=== PATIENT | female | born 1965 | race Caucasian/White ===

== ENCOUNTER 2023-08-15 12:42 | Outpatient (CLI) | payer OTHER, SELFPAY ==
--- NOTE | ~2023-08-15 | MR_ITS ---
MRI of the cervical spine Clinical History: Neck pain, radiculopathy Technique: Axial T2-weighted and gradient images, and sagittal T1-weighted, T2-weighted, and STIR beronica ges were acquired. Findings: There is mild reversal normal cervical lordosis, with minimal grade 1 anterolisthesis of C3 over C4, and of C4 over C5. No suspicious bone marrow signal reality seen. At C2-C3, there is no disc bulge or herniation. No spinal canal stenosis, cord compression, or neural foraminal narrowing. At C3-C4, there is minimal disc bulge. There is right neural foraminal narrowing with right-sided fac et arthropathy. Left neural foramen preserved. No canal stenosis or cord compression. At C4-C5, there is disc osteophyte complex with mild canal stenosis and minimal flattening the ventra l cord. There is left neural foraminal narrowing. Right neural foramen preserved. There is left facet arthropathy. At C5-C6, there is moderate to advanced degenerative disc narrowing. No madelyn canal stenosis or cord compression. There is possible minimal bilateral neural foraminal narrowing with minimal facet arthro kristofer. At C6-C7, there is moderate to advanced degenerative disc narrowing. There is no madelyn canal stenosis , cord compression, or definite neural foraminal narrowing. No abnormal signal seen in the spinal cord. Paravertebral soft tissues are unremarkable. Impression: Moderate degenerative spondylosis at C4-C5, as above. Additional mild degenerative changes, as above. Reviewed, dictated and finalized at [facility]. Impression: Moderate degenerative spondylosis at C4-C5, as above. Additional mild degenerative changes, as above.
== END 2023-08-15 12:43 | disposition home or self-care (01) ==
LOC: ANHIMG 12:48
PROVIDERS: PCP Nurse Practitioner; Visit Provider Nurse Practitioner
DX: M47.892 Other spondylosis, cervical region (principal)
CPT/HCPCS: 72141

== ENCOUNTER 2023-09-02 11:25 | Emergency (ER) | payer OTHER, SELFPAY ==
--- NOTE | 2023-09-02 11:31 | ED.GENADULT ---
HPI - General Adult General Chief complaint: Skin/Abscess/Foreign Body Stated complaint: Rash on right arm Time Seen by Provider: 09/02/23 11:31 Source: patient, RN notes reviewed and old records reviewed Mode of arrival: ambulatory Limitations: no limitations History of Present Illness HPI narrative: 58-year-old female to [facility] for complaint a rash to right upper anterior arm for 2 weeks. Patient reports initial insect bites that were itchy. Patient attempted to treat at home with peroxide and antibiotic cream. Patient endorses increasing redness, swelling, warmth to area. Patient denies fevers, radiating pain, nausea, decreased range of motion, allergies, pertinent medical history. Patient in no acute distress. Related Data Home Medications Medication Instructions Recorded Confirmed atorvastatin 20 mg tablet mg 09/02/23 carbamazepine 200 mg mg PO 09/02/23 tablet,extended release,12 hr gabapentin 300 mg capsule mg 09/02/23 insulin glargine 100 unit/mL (3 unit subcut 09/02/23 mL) subcutaneous pen (Lantus Solostar U-100 Insulin) insulin lispro 100 unit/mL subcut 09/02/23 subcutaneous pen (Humalog KwikPen (U-100) Insulin) levothyroxine 75 mcg tablet mcg 09/02/23 metoprolol succinate 50 mg mg PO 09/02/23 tablet,extended release 24 hr montelukast 10 mg tablet mg 09/02/23 omeprazole 40 mg capsule,delayed mg 09/02/23 release venlafaxine 150 mg mg PO 09/02/23 capsule,extended release 24 hr Allergies Allergy/AdvReac Type Severity Reaction Status Date / Time No Known Allergies Allergy Unverified 11/20/16 11:14 Review of Systems Review of Systems: All systems reviewed & are unremarkable except as noted in HPI and below Constitutional: Constitutional: Reports no additional constitutional complaints Eyes: Eyes: Reports no additional eye complaints ENT: Reports system reviewed and no additional complaints, except as documented Cardiovascular: Cardiovascular: Reports no additional cardiovascular complaints, Denies chest pain and Denies dyspnea Respiratory: Respiratory: Reports no additional respiratory complaints, Denies cough and Denies dyspnea Musculoskeletal: Musculoskeletal: Reports no additional musculoskeletal complaints Integumentary/Breasts: Skin/Breast: Reports as per HPI, Reports swelling, Reports pruritus, Reports erythema and Reports rash Neurologic: Reports system reviewed and no additional complaints, except as documented Psychiatric: Psychiatric: Reports no additional psychiatric complaints PMFSH Comments At the time of my signature, I reviewed and agree with the nursing past medical, surgical, social, and family history. There is no relevant family history pertinent to the patient complaint. Exam Const: General: cooperative, healthy appearing, no acute distress, alert, uncomfortable and well nourished Nutritional Appearance: well nourished Orientation/consciousness: patient oriented x3 Limitations: no limitations HENMT: Head: normal to inspection Ears: external ears normal Face/Nose/Sinus: Normal external nose present, Normal nares present, normal facial exam, No erythema and No edema Face and sinus: normal facial exam, no erythema and no edema Mouth: Yes Normal oral and palatal mucosa present Eyes: General: appearance normal, both eyes and all related structures Neck: Neck: normal visual inspection, full ROM and no meningeal signs Lymphatic: no lymphadenopathy noted and no lymphedema noted Chest: Chest palpation & inspection: normal inspection of the chest Resp: Effort & Inspection: normal respiratory effort and able to speak in complete sentences Auscultation: clear to auscultation bilaterally Cardio: Jugular venous distension: no JVD Rate: regular rate Rhythm: regular rhythm Back/Spine/Pelvis: Cervical Spine: cervical ROM normal Skin: General skin exam: erythema, excoriation and rashes Other: Rash to right upper anterior arm. Rajan
[2023-09-02 11:39] VITALS: BP 153/69; PULSE 71; RESP 16; TEMP 36.8; O2SAT 99
== END 2023-09-02 12:05 | disposition home or self-care (01) ==
PROVIDERS: Emergency Provider Nurse Practitioner Family; PCP Nurse Practitioner
DX: L03.113 Cellulitis of right upper limb (principal); S40.861A Insect bite (nonvenomous) of right upper arm, initial encounter; W57.XXXA Bitten or stung by nonvenomous insect and other nonvenomous arthropods, initial encounter
CPT/HCPCS: 99213; G0463

== ENCOUNTER 2025-02-05 15:45 | Emergency (ER) | payer OTHER, SELFPAY ==
--- OUTSIDE RECORDS SUMMARY | 2024-01-24 05:00 | XMS_ITS ---
Author Organization [facility] Address [address] [place] [address] Care Team Providers Care Senior Electrical Designer Name Role Phone Hunter Wilhelm Primary Care Provider [phone] REASON FOR VISIT PCP FU Social History Sex Assigned At : Social History Observation Description Sex Assigned At Female Encounters Encounter Location Date Provider Diagnosis [address] [address] 01/24/2024 Hunter Wilhelm Plan Of Treatment No Information Progress Notes * Rafa MERAZOB: [birth year] (59 yo F)Acc No.[id number]:01/24/2024 UNLOCKED PROGRESS NOTE Progress Notes Patient: Lennie LYNN Provider: Megan Wilhelm, MSN, AGPCNP-BC :1965 A ge:58 Y S ex:Female Date:01/24/2024 Address:[address] [place], [place] [id number] Structured Data:Is there a n edith you would prefer we call you? (Nombre que prefiere usar) : No Subjective: * Chief Complaints: * 1 . PCP FU. * Medical History: Objective: * Vitals: Assessment: Plan: * Treatment: * * Electronic signature of Noah Wilhelm APRN, [id number] on 02/05/2025 at 03:48 PM MACADAM RAKER Sign off status: Pending * Provider: Megan Wilhelm, ELINA, AGPCNP-BC Date: 03/25/2023 Generated for Printing/Faxing/eTransmitting on: 04/07/2024 03:48 PM MACADAM RAKER
--- OUTSIDE RECORDS SUMMARY | 2024-01-29 08:00 | XMS_ITS ---
Author Organization [facility] Address [address] [place] [address] Care Team Providers Care Director Of Residential Services Name Role Phone Hunter Wilhelm Primary Care Provider Lorena Brown [phone] REASON FOR VISIT pap exam Social History Sex Assigned At : Social History Observation Description Sex Assigned At Female Encounters Encounter Location Date Provider Diagnosis [address] [address] 01/29/2024 Lorena Brown Plan Of Treatment No Information Progress Notes * Bridger MOLINAeDOB: [birth year] (59 yo F)Acc No.[id number]:01/29/2024 UNLOCKED PROGRESS NOTE Patient: Lennie LYNN Provider: Yasmany Brown APRN :1965 A ge:58 Y S ex:Female Date:01/29/2024 Address:[address] [place], [place] [address] Pcp:Hunter Wilhelm Structured Data:Is there a n edith you would prefer we call you? (Nombre que prefiere usar) : No Subjective: * Chief Complaints: * 1 . Pap exam. * Medical History: Objective: * Vitals: Assessment: Plan: * Treatment: * * Electronic signature of Maral Brown [id number] on 02/05/2025 at 03:48 PM FERTILIZER SUPERVISOR Sign off status: Pending * Provider: Yasmany Brown APRN Date: 03/30/2023 Generated for Pastora hall/Darryl/Myrna on: 04/07/2024 03:48 PM FERTILIZER SUPERVISOR
--- OUTSIDE RECORDS SUMMARY | 2024-03-13 04:00 | XMS_ITS ---
Author Organization [facility] Address [address] [place] [address] Care Team Providers Care Journeyman Pipe Welder Name Role Phone Hunter Wilhelm Primary Care Provider REASON FOR VISIT Labs Social History Sex Assigned At : Social History Observation Description Sex Assigned At Female Encounters Encounter Location Date Provider Diagnosis [address] [address] 03/13/2024 Hunter Wilhelm Plan Of Treatment No Information Progress Notes * Bridger MERAZeDOB: [birth year] (59 yo F)Acc No.[id number]:03/13/2024 UNLOCKED PROGRESS NOTE Patient: Lennie LYNN Provider: Megan Wilhelm, MSN, AGPCNP-BC :1965 A ge:58 Y S ex:Female Date:03/13/2024 Address:[address] [place], [place] [address] Structured Data:Is there a n edith you would prefer we call you? (Nombre que prefiere usar) : No Subjective: * Chief Complaints: * 1 . Labs. * Medical History: Objective: * Vitals: Assessment: Plan: * Treatment: * * Electronic signature of Noah Wilhelm APRN, [id number] on 02/05/2025 at 03:47 PM RETAIL SERVICE LEAD MERCHANDISER Sign off status: Pending * Provider: Megan Wilhelm, MSN, AGPCNP-BC Date: 05/14/2023 Generated for Printing/Faxing/eTransmitting on: 04/07/2024 03:47 PM RETAIL SERVICE LEAD MERCHANDISER
--- OUTSIDE RECORDS SUMMARY | 2024-03-20 04:20 | XMS_ITS ---
Author Organization [facility] Address [address] [place] [address] Care Team Providers Care Pbx Wire Chief Name Role Phone Hunter Wilhelm Primary Care Provider REASON FOR VISIT Labs Social History Sex Assigned At : Social History Observation Description Sex Assigned At Female Encounters Encounter Location Date Provider Diagnosis [address] [address] 03/20/2024 Hunter Wilhelm Plan Of Treatment No Information Progress Notes * Bridger MERAZeDOB: [birth year] (59 yo F)Acc No.[id number]:03/20/2024 UNLOCKED PROGRESS NOTE Patient: Lennie LYNN Provider: Megan Wilhelm, MSN, AGPCNP-BC :1965 A ge:58 Y S ex:Female Date:03/20/2024 Address:[address] [place], [place] [id number] Structured Data:Is there a n edith you would prefer we call you? (Nombre que prefiere usar) : No Subjective: * Chief Complaints: * 1 . Labs. * Medical History: Objective: * Vitals: Assessment: Plan: * Treatment: * * Electronic signature of Noah Wilhelm APRN, [id number] on 02/05/2025 at 03:48 PM ELECTRODYNAMICIST Sign off status: Pending * Provider: Megan Wilhelm, MSN, AGPCNP-BC Date: 0 03/20/2024 Generated for Printing/Faxing/eTransmitting on: 1 04/07/2024 03:48 PM ELECTRODYNAMICIST
--- OUTSIDE RECORDS SUMMARY | 2024-04-20 04:00 | XMS_ITS ---
Author Organization [facility] Address [address] [place] [address] Care Team Providers Care Art History Instructor Name Role Phone Hunter Wilhelm Primary Care Provider Results Component Value Reference Range Notes Hemoglobin A1c* Reviewed date:05/19/2024 10:35:16 AM Interpretation: Performing Lab:[facility], [address] [facility], Phone - [phone], Director - [facility] Notes/Report: Hemoglobin A1c 10.6 4.8-5.6 % . Prediabetes: 5.7 - 6.4 Diabetes: >6.4 Glycemic control for adults with diabetes: <7.0 CBC With Differential/Platel et* Reviewed date:05/19/2024 10:35:16 AM Interpretation: Performing Lab:[facility], [address] [facility], [place], Phone - [phone], Director - [facility] Notes/Report: WBC 3.9 3.4-10.8 x10E3/uL RBC 4.09 3.77-5.28 x10E6/uL Hemoglobin 13.0 11.1-15.9 g/dL Hematocrit 39.0 34.0-46.6 % MCV 95 79-97 fL MCH 31.8 26.6-33.0 pg MCHC 33.3 31.5-35.7 g/dL RDW 11.9 11.7-15.4 % Platelets 248 150-450 x10E3/uL Neutrophils 44 Not Estab. % Lymphs 40 Not Estab. % Monocytes 7 Not Estab. % Eos 9 Not Estab. % Basos 0 Not Estab. % Neutrophils (Absolute) 1.7 1.4-7.0 x10E3/uL Lymphs (Absolute) 1.5 0.7-3.1 x10E3/uL Monocytes(Absolute) 0.3 0.1-0.9 x10E3/uL Eos (Absolute) 0.4 0.0-0.4 x10E3/uL Baso (Absolute) 0.0 0.0-0.2 x10E3/uL Immature Granulocytes 0 Not Estab. % Immature Grans (Abs) 0.0 0.0-0.1 x10E3/uL Carbamazepine(Tegretol), S Reviewed date:05/19/2024 10:35:16 AM Interpretation: Performing Lab:[facility] [address], Phone - [phone], Director - [facility] Notes/Report: Carbamazepine(Tegretol), S 3.6 4.0-12.0 ug/mL In conjunction with other antiepileptic drugs Therapeutic 4.0 - 8.0 Toxicity 9.0 - 12.0 . Carbamazepine alone Therapeutic 8.0 - 12.0 . Detection Limit = 2.0 <2.0 indicates None Detected Please note The date and/or time of collection was not indicated on the requisition as required by state and federal law. The date of receipt of the specimen was used as the collection date if not supplied. TSH+Free T4* Reviewed date:05/19/2024 10:35:16 AM Interpretation: Performing Lab:[facility] [place], [address] [place] [address], Phone - [phone], Director - [facility] Notes/Report: TSH 2.620 0.450-4.500 uIU/mL T4,Free(Direct) 0.91 0.82-1.77 ng/dL CMP 14 Comprehensive Metabol ic Panel* Reviewed date:05/19/2024 10:35:16 AM Interpretation: Performing Lab:[facility] [address], Phone - [phone], Director - [facility] Notes/Report: Glucose 157 70-99 mg/dL BUN 11 6-24 mg/dL Creatinine 0.66 0.57-1.00 mg/dL eGFR 103 >59 mL/min/1.73 BUN/Creatinine Ratio 17 9-23 Sodium 138 134-144 mmol/L Potassium 5.2 3.5-5.2 mmol/L Chloride 99 96-106 mmol/L Carbon Dioxide, Total 25 20-29 mmol/L Calcium 9.3 8.7-10.2 mg/dL Protein, Total 6.5 6.0-8.5 g/dL Albumin 4.2 3.8-4.9 g/dL Globulin, Total 2.3 1.5-4.5 g/dL Bilirubin, Total <0.2 0.0-1.2 mg/dL Alkaline Phosphatase 121 44-121 IU/L AST (SGOT) 32 0-40 IU/L ALT (SGPT) 29 0-32 IU/L REASON FOR VISIT Fasting labs Medications Medication SIG (Take, Route, Frequency, Duration) Notes Start Date End Date Status metroNIDAZOLE 500 MG 1 tablet Orally Twi ce daily; Duration: 7 days 02/05/2024 Active Calcium 600 MG 1 tablet with meals Orally Once a day Not-Taking Lidocaine 4 % 1 patch as needed Externally Once a day Not-Taking Lantus SoloStar 100 UNIT/ML INJECT 20 UNITS SUBCUTANEOUSLY EVERY NIGHT; Duration: 75 days Active HumaLOG KwikPen 200 UNIT/ML INJECT UP TO 20 UNITS SUBCUTANEOUSLY THREE TIMES A DAY SLIDING SCALE; Duration: 84 Active Metoprolol Succinate ER 50 mg TAKE 1 TABLET BY MOUTH DAILY; Duration: 30 Active Fluticasone Propionate 50 MCG/ACT 1 spray in each nostril Nasally Once a day Active Claritin 10 MG 1 capsule Orally Onc e a day Active ProAir HFA 108 (90 Base) MCG/ACT 1-2 puff as needed Inhalation every 4 hrs; Duration: 30 days 08/06/2019 Active Tresiba FlexTouch 100 UNIT/ML as directed Subcutaneous Act radha Omeprazole 40 mg TAKE 1 CAPSULE BY [facility] DAILY 30 MINUTE(S) BEFORE FOOD; Duration: 30 days Active TRUEplus Pen [place] 31G X 6 MM INJECT FOUR TIMES A DAY WITH INSULIN; Duration: 25 days Active Levothyroxine Sodium 75 MCG 1 tablet in the morning on an empty stomach; Duration: 30 days Active Venlafaxine HCl ER 150 mg TAKE 1 CAPSULE BY MOUTH DAILY WITH FOOD; Duration: 30 days Active Venlafaxine HCl ER 75 mg TAKE 1 CAPSULE BY MOUTH DAILY; Duration: 30 days Active Atorvastatin Calcium 40 mg TAKE 1 TABLET BY MOUTH DAILY; Duration: 30 days Active UltiCare Mini Pen [place] 31G X 6 MM INJECT FOUR TIMES A DAY WITH INSULIN; Duration: 25 Not-Taking carBAMazepine ER 200 mg TAKE 1 TABLET BY MOUTH TWICE A DAY; Duration: 30 days Active Gabapentin 300 mg TAKE 1 CAPSULE BY MO UTH UP TO THREE TIMES A DAY; Duration: 30 days Active Diclofenac Sodium 75 mg TAKE 1 TABLET BY MOUTH TWICE A DAY; Duration: 30 days Active OneTouch Ultra - TEST BLOOD SUGAR THR EE TIMES A DAY; Duration: 33 Not-Taking Metoprolol Tartrate 25 mg TAKE 1 TABLET BY MOUTH TWICE A DAY WITH FOOD; Duration: 30 Not-Taking Influenza Vac Split Quad 0.5 ML as directed Intramuscular once Not-Taking Test strips for glucometer As directed QID 07/29/2020 Not-Taking Influenza Vac Split Quad 0.5 ML as directed Intramuscular once Not-Taking Meclizine HCl 25 MG 1 tablet as needed Orally Once a day; Duration: 30 Not-Taking LORazepam 1 MG as directed Orally O nce a day; Duration: 30 days Not-Shawn ing Euthyrox 75 MCG TAKE 1 TABLET BY [place]KHAIL TH ONCE DAILY IN THE MORNING ON AN EMPTY STOMACH; Duration: 30 Not-Taking Admelog SoloStar 100 UNIT/ML INJECT 10 UNITS BEFORE EVERY MEAL Subcutaneous three times daily; Duration: 50 Not-Taking Social History Sex Assigned At : Social History Observation Description Sex Assigned At Female Encounters Encounter Location Date Provider Diagnosis [address] [address] 04/20/2024 Hunter Wilhelm Seizure disorder G40.909 ; Type 1 diabetes mellitus without complication E10.9 and Hypothyroidism, unspecified type E03.9 Assessments Encounter Date Diagnosis (ICD Code) Assessment Notes Treatment Notes Treatment Clinical Notes Section Notes 04/20/2024 Seizure disorder (ICD-10 - G40.909) 04/20/2024 Type 1 diabetes mellitus without complication (ICD-10 - E10.9) 04/20/2024 Hypothyroidism, unspecified type (ICD-10 - E03.9) Plan Of Treatment No Information Progress Notes * Rafa MERAZOB: [birth year] (59 yo F)Acc No.[id number]:04/20/2024 UNLOCKED PROGRESS NOTE Patient: Lennie LYNN Provider: Megan Wilhelm, MSN, AGPCNP-BC :1965 A ge:58 Y S ex:Female Date:04/20/2024 Address:[address] [place], [place] [id number] Structured Data:Is there a n edith you would prefer we call you? (Nombre que prefiere usar) : No Subjective: * Chief Complaints: * 1 . Fasting labs. * Medical History: * Medications: T aking Claritin 10 MG Capsule 1 capsule Orally Once a day , Taking Fluticasone Propionate 50 MCG/ACT Suspension 1 spray in each nostril Nasally Once a day , Taking Tresiba FlexTouch 100 UNIT/ML Solution Pen-injector as directed Subcutaneous , Taking ProAir HFA 108 (90 Base) MCG/ACT Aerosol Solution 1-2 puff as needed Inhalation every 4 hrs , Taking HumaLOG KwikPen 200 UNIT/ML Solution Pen-injector INJECT UP TO 20 UNITS SUBCUTANEOUSLY THREE TIMES A DAY SLIDING SCALE , Taking Lantus SoloStar 100 UNIT/ML Solution Pen-injector INJECT 20 UNITS SUBCUTANEOUSLY EVERY NIGHT , Taking metroNIDAZOLE 500 MG Tablet 1 tablet Orally Twice daily , Taking Atorvastatin Calcium 40 mg Tablet TAKE 1 TABLET BY MOUTH DAILY , Taking Gabapentin 300 mg Capsule TAKE 1 CAPSULE BY MOUTH UP TO THREE TIMES A DAY , Taking carBAMazepine ER 200 mg Tablet Extended Release 12 Hour TAKE 1 TABLET BY MOUTH TWICE A DAY , Taking Diclofenac Sodium 75 mg Tablet Delayed Release TAKE 1 TABLET BY MOUTH TWICE A DAY , Taking Levothyroxine Sodium 75 MCG Tablet 1 tablet in the morning on an empty stomach , Taking Venlafaxine HCl ER 75 mg Capsule Extended Release 24 Hour TAKE 1 CAPSULE BY MOUTH DAILY , Taking Venlafaxine HCl ER 150 mg Capsule Extended Release 24 Hour TAKE 1 CAPSULE BY MOUTH DAILY WITH FOOD , Taking Omeprazole 40 mg Capsule Delayed Release TAKE 1 CAPSULE BY MOUTH DAILY 30 MINUTE(S) BEFORE FOOD , Taking TRUEplus Pen [place] 31G X 6 MM Miscellaneous INJECT FOUR TIMES A DAY WITH INSULIN , Taking Metoprolol Succinate ER 50 mg Tablet Extended Release 24 Hour TAKE 1 TABLET BY MOUTH DAILY , Not-Taking Lidocaine 4 % Patch 1 patch as needed Externally Once a day , Not- Taking Calcium 600 MG Tablet 1 tablet with meals Orally Once a day , Not-Taking LORazepam 1 MG Tablet as directed Orally Once a day , Not-Taking Meclizine HCl 25 MG Tablet 1 tablet as needed Orally Once a day , Not-Taking Admelog SoloStar 100 UNIT/ML Solution Pen-injector INJECT 10 UNITS BEFORE EVERY MEAL Subcutaneous three times daily , Not-Taking Euthyrox 75 MCG Tablet TAKE 1 TABLET BY MOUTH ONCE DAILY IN THE MORNING ON AN EMPTY STOMACH , Not-Taking Test strips for glucometer As directed QID , Not- Taking Influenza Vac Split Quad 0.5 ML Suspension Prefilled Syringe as directed Intramuscular once , Not-Taking Influenza Vac Split Quad 0.5 ML Suspension Prefilled Syringe as directed Intramuscular once , Not-Taking Metoprolol Tartrate 25 mg Tablet TAKE 1 TABLET BY MOUTH TWICE A DAY WITH FOOD , Not-Taking OneTouch Ultra - Strip TEST BLOOD SUGAR THREE TIMES A DAY , Not-Taking UltiCare Mini Pen [place] 31G X 6 MM Miscellaneous INJECT FOUR TIMES A DAY WITH INSULIN Objective: * Vitals: Assessment: * Assessment: 1. S eizure disorder - G40.909 2 . T ype 1 diabetes mellitus without complication - E10.9 3 . H ypothyroidism, unspecified type - E03.9 Plan: * Treatment: 2. T ype 1 diabetes mellitus without complication L AB: Hemoglobin A1c* (Collection Date & Time - 04/27/2024) L AB: CBC With Differential/Platelet* (Collection Date & Time - 04/27/2024) L AB: CMP 14 Comprehensive Metabolic Panel* (Collection Date & Time - 04/27/2024) 3. H ypothyroidism, unspecified type L AB: TSH+Free T4* (Collection Date & Time - 04/27/2024) * * Electronic signature of Noah Wilhelm , STITCHER [employer], [phone] on 02/05/2025 at 03:47 PM PROFESSIONAL NURSE Sign off status: Pending * Provider: Megan Wilhelm, MSN, AGPCNP-BC Date: 0 04/20/2024 Generated for Printing/Faxing/eTransmitting on: 1 04/07/2024 03:47 PM PROFESSIONAL NURSE
--- OUTSIDE RECORDS SUMMARY | 2024-04-27 03:20 | XMS_ITS ---
Author Organization [facility] Address [address] [place] [address] Care Team Providers Care Turning Sander Tender Name Role Phone Hunter Wilhelm Primary Care Provider [phone] REASON FOR VISIT Labs-fasting Social History Sex Assigned At : Social History Observation Description Sex Assigned At Female Encounters Encounter Location Date Provider Diagnosis [address] [place] [address] 04/27/2024 Hunter Wilhelm Plan Of Treatment No Information Progress Notes * Rafa MERAZOB: [birth year] (59 yo F)Acc No.[id number]:04/27/2024 UNLOCKED PROGRESS NOTE Patient: Lennie LYNN Provider: Megan Wilhelm, MSN, AGPCNP-BC :1965 A ge:58 Y S ex:Female Date:04/27/2024 Address:[address] [place], [place] [address] Structured Data:Is there a n edith you would prefer we call you? (Nombre que prefiere usar) : No Subjective: * Chief Complaints: * 1 . Labs-fasting. * Medical History: Objective: * Vitals: Assessment: Plan: * Treatment: * * Electronic signature of Noah Wilhelm APRN, [id number] on 02/05/2025 at 03:47 PM MANAGER POOL Sign off status: Pending * Provider: Megan Wilhelm, ELINA, AGPCNP-BC Date: 0 04/27/2024 Generated for Printing/Faxing/eTransmitting on: 1 04/07/2024 03:47 PM MANAGER POOL
--- OUTSIDE RECORDS SUMMARY | 2024-05-04 02:20 | XMS_ITS ---
Author Organization [facility] Address [address] [place] [address] Care Team Providers Care Turret Punch Operator Name Role Phone Hunter Wilhelm Primary Care Provider REASON FOR VISIT Labs-fasting Social History Sex Assigned At : Social History Observation Description Sex Assigned At Female Encounters Encounter Location Date Provider Diagnosis [address] [place] [address] 05/04/2024 Hunter Wilhelm Plan Of Treatment No Information Progress Notes * Rafa MERAZOB: [birth year] (59 yo F)Acc No.[id number]:05/04/2024 UNLOCKED PROGRESS NOTE Patient: Lennie LYNN Provider: Megan Wilhelm, MSN, AGPCNP-BC :1965 A ge:58 Y S ex:Female Date:05/04/2024 Address:[address] [place], [place] [address] Structured Data:Is there a n edith you would prefer we call you? (Nombre que prefiere usar) : No Subjective: * Chief Complaints: * 1 . Labs-fasting. * Medical History: Objective: * Vitals: Assessment: Plan: * Treatment: * * Electronic signature of Noah Wilhelm APRN, [id number] on 02/05/2025 at 03:47 PM SUPERVISOR THROWING DEPARTMENT Sign off status: Pending * Provider: Megan Wilhelm, ELINA, AGPCNP-BC Date: 0 05/04/2024 Generated for Printing/Faxing/eTransmitting on: 1 04/07/2024 03:47 PM SUPERVISOR THROWING DEPARTMENT
--- OUTSIDE RECORDS SUMMARY | 2025-02-05 15:47 | XMS_ITS | Encounter Summary ---
Author Organization [facility] Healthcare Address [address] [place] [address] Care Team Providers Care Lead Pastor Name Role Phone Hunter Wilhelm NP Primary Care Provider [phone]- [phone] Hugh Delgado MD Primary Care Provi rishi Encounter Details Date Type Department Care Team (Late st Contact Info) Description 09/29/2019 Telephone [facility] [address] [place] [address] Nina Irizarry, RT Social History Tobacco Use Types Packs/Day Years Used Date Smoking Tobacco: Never Assessed Alcohol Use Standard Drinks/Week Comments Yes 0 (1 standard drink = 0.6 oz pur e alcohol) Comments Unknown Sex and Gender Information Value Date Recorded Sex Assigned at Not on file Legal Sex Female 11:01 AM LAP LAYER Gender Identity Female 01/29/2023 8:49 AM LAP LAYER Sexual Orientation Straight 01/29/2023 8: 49 AM LAP LAYER documented as of this encounter Plan of Treatment Not on file documented as of this encounter Visit Diagnoses Not on filedocumented in this encounter Care Teams Lead Pastor Relationship Specialty Start Date End Date Hunter Wilhelm NP PCP - General 05/17/19 07/22/24 Hugh Delgado MD [address] [facility] [address] [place] [address] PCP - General Family Practice 07/23/24 documented as of this encounter
--- OUTSIDE RECORDS SUMMARY | 2025-02-05 15:48 | XMS_ITS | Clinical Summary ---
Author Organization [facility] Address [address], [address] [address] Phone Care Team Providers Care Claims Processor Name Role Phone Hugh Delgado MD Primary Care Provi rishi Allergies No known active allergies Medications metoprolol tartrate (LOPRESSOR) 25 MG Tablet Take 25 mg by mouth 2 times daily. 1/2 tablet BID 5 6 Active LANTUS 100 UNIT/ML Solution 21 Units by Subcutaneous route nightly. 4 6 Active Calcium Carbonate-Vit D-Min (GNP CALCIUM 1200) 8952-3716 MG-UNIT Chewable Tablet Take 1 Tab by mouth every morning. Active carBAMazepine (TEGRETOL) 200 MG Tablet Take 200 mg by mouth 2 times daily. Active levothyroxine (SYNTHROID) 75 MCG Tablet Take 75 mcg by mouth every morning. Active ascorbic acid (ASCORBIC ACID) 500 MG Tablet Take 500 mg by mouth every morning. Active ONE TOUCH ULTRA TEST Strip 0 6 Active B-D ULTRAFINE III SHORT PEN 31G X 8 MM Misc 0 6 Active Insulin Syringe-Needle U-100 (INSULIN SYRINGE .3CC/29GX1/2) 29G X 1/2 0.3 ML Misc 5 6 Active Insulin Syringe-Needle U-100 (INSULIN SYRINGE .3CC/31GX516) 31G X 516 0.3 ML Misc 0 6 Active Magnesium Oxide 400 MG Capsule Take 400 mg by mouth once. Active ACYCLOVIR PO Take 1 g by mouth daily. Active LORazepam (ATIVAN) 1 MG Tablet Take 1 mg by mouth nightly as needed. Active Venlafaxine HCl XR (EFFEXOR-XR) 150 MG TABLET SR 24 HR Take 1 Tab by mouth. Active omeprazole (PRILOSEC) 20 MG CAPSULE DELAYED RELEASE Take 1 Cap by mouth every morning (before breakfast). 90 Cap 9 Active diclofenac (VOLTAREN) 75 MG Tablet Delayed Response TK 1 T PO BID 0 Active Magnesium 250 MG Tablet Take 250 mg by mouth. Active Insulin Lispro (ADMELOG SC) by Subcutaneous route. PER SLIDING SCALE Active Biotin (biotin forte) 3 MG Tablet Take 3 mg by mouth daily. Active ondansetron (Zofran) 4 MG Tablet Take 1 Tab by mouth every 8 hours as needed for Nausea - 1st line. 15 Tab 0 Active albuterol 108 (90 Base) MCG/ACT Aerosol Solution take 2 Puffs by inhalation every 6 hours as needed for Wheezing. 8 g 4 Active HYDROcodone-nick taminophen (NORCO) 5-325 MG TabletIndicatio ns:Closed fracture of distal ends of right radius and ulna, initial encounter Take 1 Tablet by mouth every 6 hours as needed for Moderate or more severe pain. 20 Tablet 4 Active dicyclomine (BENTYL) 20 MG Tablet Take 1 Tablet by mouth every 6 hours. 30 Tablet 4 Active ondansetron (ZOFRAN) 4 MG Tablet Take 1-2 Tablets by mouth every 8 hours as needed for Nausea - 1st line. 20 Tablet 4 Active naproxen (NAPROSYN) 500 MG Tablet Take 1 Tablet by mouth 2 times daily as needed for Moderate or more severe pain. 20 Tablet 5 Active cyclobenzaprine (FLEXERIL) 10 MG Tablet Take 1 Tablet by mouth 3 times daily as needed (pain) for up to 14 days. 30 Tablet 5 02/15/20 25 Active Active Problems Problem Noted Date Diagnosed Date Closed Colles' fracture of left radius 4 DANIA (stress urinary incontinence, female) 2019 Encounters Date Type Department Care Team Description 01/31/2025 10:25 PM GASOLINE TRACTOR OPERATOR - 01/31/2025 11:22 PM GASOLINE TRACTOR OPERATOR Emergency [facility] Emergency [address] [place] [address] Wilber Stover DO Finger laceration Discharge Disposition: Discharged to home or Selfcare 01/31/2025 Travel from Last 3 Months Immunizations Immunization Administration Dates Next Due Influenza Vaccine greater than 3 yrs 01/06/2015 Family History Medical History Relation Name Comments Cancer Father pancreatic High Cholesterol Father Hypertension Father Breast Cancer Maternal Aunt Cancer Maternal Aunt breast Breast Cancer Maternal Grandmother Cancer Maternal Grandmother breast Cancer Mother melanoma High Cholesterol Mother Hypertension Mother Parkinsonism Mother Rheumatoid Arthritis Mother Thyroid Disease Mother Relation Name Status Comments Father Maternal Aunt Maternal Grandmother Mother Social History Tobacco Use Types Packs/Day Years Used Date Smoking Tobacco: Every Day Cigarettes 0.5 20 Smokeless Tobacco: Never Tobacco Cessation:Ready to Q uit: Not Asked; Counseling Given: Not Answered Comments:patient has cut back her cigarette usage, some days doesnt smoke Alcohol Use Standard Drinks/Week Comments Yes 6 (1 standard drink = 0.6 oz pur e alcohol) occassional PHQ-2 Answer Date Recorded PHQ-2 Score 0 11/29/2018 Sexually Active Control Partners Comments Yes Male Comments No Sex and Gender Information Value Date Recorded Sex Assigned at Not on file Legal Sex Female 2:50 PM GASOLINE TRACTOR OPERATOR Gender Identity Not on file Sexual Orientation Not on file Occupation Industry Job Start Date Job End Date unemployed Not on file Not on file Not on file Last Filed Vital Signs Vital Sign Reading Time Taken Comments Blood Pressure 136/64 01/31/2025 10:29 PM GASOLINE TRACTOR OPERATOR Pulse 76 01/31/2025 10:29 PM GASOLINE TRACTOR OPERATOR Temperature 36.3 C (97.4 F) 01/31/2025 10:29 PM GASOLINE TRACTOR OPERATOR Respiratory Rate 14 01/31/2025 10:2 9 PM GASOLINE TRACTOR OPERATOR Oxygen Saturation 99% 01/31/2025 10: 29 PM GASOLINE TRACTOR OPERATOR Inhaled Oxygen Concentration - - Weight 56.1 kg (123 lb 10.9 oz) 025 10:29 PM GASOLINE TRACTOR OPERATOR Height 160 cm (5' 3) 01/31/2025 10:29 PM GASOLINE TRACTOR OPERATOR Body Mass Index 21.91 01/31/2025 10:29 PM GASOLINE TRACTOR OPERATOR Plan of Treatment Health Maintenance Due Date Last Done Comments Varicella Immunization (1 of 2 - 13+ 2-dose series) 09/04/1980 Pneumococcal Immunization (50+ years) (1 of 2 - PCV) 09/04/1986 Pap Smear 09/04/1988 Cervical Cancer Screening (CCS) 09/04/1997 HPV/Cotest 09/04/1997 Cologuard 09/04/2012 Immunochemical Fecal Occult Blood 09/04/2012 Hepatitis B Immunization (3 of 3 - 19+ 3-dose series) 06/19/2022 04/24/2022, 10/17/2021 Influenza Immunization (#1) 11/16/202402/15, 01/02/2022, 03/08/2021, Additional history exists SARS-COV-2 Immunization (2024- season) 2024 02/28/2023, 01/09/2022, 03/15/2021, Additional history exists Mammogram 07/28/2025 07/28/2024, 12/16, 01/02/2022, Additional history exists Colonoscopy 12/03/2034 12/03/2024, 11/16, 03/25/2018 Colorectal Cancer Screening 12/03/2034 Respiratory Syncytial Virus (RSV) Immunization (Adult) (1 - 1-dose 75+ series) 09/04/2042 DTaP/Tdap/Td Immunization Discontinued 08/11/2021 TdaP Immunization Completed 08/11/2021 Hepatitis C Virus (HCV) Screening Completed 10/30/2021 Zoster Immunization Completed 08/24/2022, Human Papillomavirus (HPV) Immunization Aged Out No longer eligible based on patient's age to complete this topic Meningococcal Immunization (ACWY) Aged Out No longer eligible based on patient's age to complete this topic Rotavirus Immunization Aged Out No lo nger eligible based on patient's age to complete this topic Medical Devices Implanted Type Area Polytechnic Registrar Device Identifier Shelf Expiration Date Model / Serial / Lot System Urth Support Blue 22cm .15mm Obtryx Ii Precisionblue Advantage Thk.66mm 1182um Midurethral - [id number] Implanted:Qty: 1 on 01/22/2020 by Jp Hernandez MD at [facility] IMPLANT N/A: Bladder [employer] 02/14/2022 [id number] Plain K-Wire- Wire Fix 9in 0.062 In Toy Cheryle [employer]ain[employer] Stel 2 Tip Smth Implanted:Qty: 4 on 07/03/2023 by Anthony Royal MD at [facility] Left: Wrist [id number] / [id number] / [id number] Description:4 K-WIRES WITH 4 JURGAN BALLS Procedures Procedure Name Priority Date/Time Associated Diagnosis Comments LACERATION REPAIR Routine 01/31/2025 10: 49 PM GASOLINE TRACTOR OPERATOR [facility] DIAG BILATERAL DIGITAL W CAD W BRENDA Routine 05/15/2018 2:05 PM GASOLINE TRACTOR OPERATOR Other signs and symptoms in breast from Last 3 Months or Most Recently Relevant to Health Maintenance Results * Laceration Repair (01/31/2025 10:49 PM GASOLINE TRACTOR OPERATOR) Narrative Wilber Stover DO - 01/31/2025 10:49 PM GASOLINE TRACTOR OPERATOR Wilber Stover DO 01/31/2025 11:15 PM Laceration Repair Performed by: Wilber Stover DO Authorized by: Wilber Stover DO Consent: Consent obtained: Emergent situation Consent given by: Patient Risks, benefits, and alternatives were discussed: yes Risks discussed: Infection, pain, need for additional repair, poor cosmetic result, nerve damage, poor wound healing, vascular damage, tendon damage and retained foreign body Alternatives discussed: No treatment, referral, observation and delayed treatment Page protocol: Procedure explained and questions answered to patient or proxy's satisfaction: yes Relevant documents present and verified: yes Test results available: yes Imaging studies available: yes Required blood products, implants, devices, and special equipment available: yes Immediately prior to procedure, a time out was called: yes Patient identity confirmed: Verbally with patient and arm band Anesthesia: Anesthesia method: Nerve block Block location: Finger block Block needle gauge: 27 G Block anesthetic: Lidocaine 1% w/o epi Block injection procedure: Anatomic landmarks identified, anatomic landmarks palpated, introduced needle, negative aspiration for blood and incremental injection Block outcome: Anesthesia achieved Laceration details: Location: Finger Finger location: L index finger Length (cm): 1 Pre-procedure details: Preparation: Patient was prepped and draped in usual sterile fashion Treatment: Amount of cleaning: Standard Irrigation solution: Sterile saline Irrigation method: Pressure wash Debridement: None Undermining: None Skin repair: Repair method: Sutures Suture size: 4-0 Suture material: Nylon Suture technique: Simple interrupted Number of sutures: 2 Approximation: Approximation: Close Repair type: Repair type: Simple Post-procedure details: Procedure completion: Tolerated well, no immediate complications us Wilber Zhou Ck DO PROCEDURE/MINOR SURGICA L ORDERABLES Final Result * [facility] DIAG BILATERAL DIGITAL W CAD W BRENDA (05/15/2018 2:05 PM GASOLINE TRACTOR OPERATOR) Anatomical Region Laterality Modality breast Bilateral Mammography 05/15/2018 1:26 PM GASOLINE TRACTOR OPERATOR Narrative 05/15/2018 2:19 PM GASOLINE TRACTOR OPERATOR - [facility] DIAG BILATERAL DIGITAL W CAD W BRENDA BILATERAL DIGITAL DIAGNOSTIC MAMMOGRAM 3D/2D WITH CAD WITH MEDIOLATERAL OBLIQUE CRANIOCAUDAL: 05/15/2018 The study was acquired using digital technology and interpreted from soft copy. Current study was also evaluated with ICAD version 7.2. CLINICAL: Patient complains of two episodes of pain on the entire lateral side of her right breast that has since improved. She also notes a very painful area and lump in the left axilla that has now gone away. She has no complaints today. No personal history of cancer. Mother and maternal aunt with postmenopausal breast cancer. COMPARISONS: Comparison is made to exams dated: 07/16/2016 [facility], 06/23/2015, and 01/23/2014 [facility]. BREAST TISSUE:The tissue of both breasts is extremely dense, which lowers the sensitivity of mammography. FINDINGS: No significant masses, calcifications, or other findings are seen in either breast. There has been no significant interval change. Since the patient no longer has areas of pain or palpable lumps, no ultrasound was performed today. IMPRESSION: BI-RAD 1 NEGATIVE There is no mammographic evidence of malignancy. A 1 year screening mammogram is recommended. The patient has been or will be contacted. Electronically signed by: Daniel Garcia M.D. ll/:05/15/2018 13:57:18 Wooden Boat Builder: Geraldine ROCHA (R)), [facility] letter sent: Normal Exam Reading location: [facility] BI-RADS: 1 Negative Procedure Note Daniel Garcia MD - 05/15/2018 - [facility] DIAG BILATERAL DIGITAL W CAD W BRENDA BILATERAL DIGITAL DIAGNOSTIC MAMMOGRAM 3D/2D WITH CAD WITH MEDIOLATERAL OBLIQUE CRANIOCAUDAL: 05/15/2018 The study was acquired using digital technology and interpreted from soft copy. Current study was also evaluated with ICAD version 7.2. CLINICAL: Patient complains of two episodes of pain on the entire lateral side of her right breast that has since improved. She also notes a very painful area and lump in the left axilla that has now gone away. She has no complaints today. No personal history of cancer. Mother and maternal aunt with postmenopausal breast cancer. COMPARISONS: Comparison is made to exams dated: 07/16/2016 [facility], 06/23/2015, and 01/23/2014 [facility]. BREAST TISSUE:The tissue of both breasts is extremely dense, which lowers the sensitivity of mammography. FINDINGS: No significant masses, calcifications, or other findings are seen in either breast. There has been no significant interval change. Since the patient no longer has areas of pain or palpable lumps, no ultrasound was performed today. IMPRESSION: BI-RAD 1 NEGATIVE There is no mammographic evidence of malignancy. A 1 year screening mammogram is recommended. The patient has been or will be contacted. Electronically signed by: Daniel Garcia M.D. ll/:05/15/2018 13:57:18 Wooden Boat Builder: Geraldine ROCHA (R)), [facility] letter sent: Normal Exam Reading location: [facility] BI-RADS: 1 Negative us Bre Mathews MAKING LINE WORKER, HEEL BOOM OPERATOR IMG MAMMO ORDERABLES Fin al Result from Last 3 Months or Most Recently Relevant to Health Maintenance Insurance [facility] Care Teams Claims Processor Relationship Specialty Start Date End Date Hugh Delgado MD [address] [facility], [address] [place] [address] PCP - General Family Medicine 01/31/25
--- OUTSIDE RECORDS SUMMARY | 2025-02-05 15:48 | XMS_ITS ---
Author Organization [facility] Address [address] [facility], [address] [address] Phone Care Team Providers Care Bee Raiser Name Role Phone Hugh Delgado MD Primary [facility] Episode Status:Identified (Enrolling) Start date:12/18/2024 Related program episode:[facility] (Closed) Continued Care and Services Coordination
--- OUTSIDE RECORDS SUMMARY | 2025-02-05 15:48 | XMS_ITS | Clinical Summary ---
Author Organization [facility] [employer] Address [address] [place] [address] Care Team Providers Care Supervisor Inspection Name Role Phone Darci King MD Primary Care Provider [phone] Source Comments [facility] [employer],non-owned Affiliates and Associated Physician Practices is amultiple site organization consisting of ambulatory clinics and hospital sitesin [place], [place], [place] and [place]. This disclosure is being madepursuant to the Care Everywhere program and may not contain all information available regarding this patient. Last updated 17.[facility] [employer] Allergies No known active allergies Medications * Be aware that medications may not be up to date on this document. Alwaysverify current medications with the patient. insulin glargine (LANTUS) injection Inject subcutaneously at bedtime. Check dose and frequency Active ranitidine (ZANTAC) 150 MG capsule Take 150 mg by mouth 2 times daily. Check dose and frequency Active aspirin (ASPIRIN) 81 MG tablet Take 81 mg by mouth once daily Active Calcium Carb-Cholecalc iferol (CALCIUM + D3 PO) Active carBAMazepine (TEGRETOL) 200 MG tablet Take 200 mg by mouth 3 times daily with meals Active diclofenac sodium EC (VOLTAREN) 75 MG tablet Take 75 mg by mouth 2 times daily Active levothyroxine (SYNTHROID) 75 MCG tablet Take 75 mcg by mouth daily before breakfast Active LORazepam (ATIVAN) 1 MG tablet Take 1 mg by mouth every 8 hours as needed for Anxiety Active magnesium 250 MG tablet Take 250 mg by mouth once daily Active METOPROLOL TARTRATE POIndications: 1/2 tablet am / 2 tablet pm Take 25 mg by mouth Reasons: 1/2 tablet am / 1/2 tablet pm Active omeprazole (PRILOSEC) 20 MG capsule Take 20 mg by mouth daily before breakfast Active valACYclovir (VALTREX) 1 GM tablet Take 1,000 mg by mouth every 12 hours Active Venlafaxine HCl (VENLAFAXINE ER 24HR) 150 MG tablet Take 150 mg by mouth daily with breakfast Active Insulin Lispro (ADMELOG SC) Active cyclobenzaprin e (FLEXERIL) 10 MG tablet Take 1 tablet by mouth nightly as needed for Muscle Spasms 30 tablet 1 9 Active amoxicillin-cl avulanate (AUGMENTIN) 875-125 MG tablet Take 1 tablet by mouth 2 times daily with morning and evening meal 28 tablet 0 Active Active Problems Problem Noted Date Diagnosed Date Cellulitis of hand 10/17/2019 Social History Tobacco Use Types Packs/Day Years Used Date Smoking Tobacco: Former Cigarettes 0 Q uit: 08/16/2018 Smokeless Tobacco: Never Tobacco Cessation:Counseling Given: Yes Comments Unknown Sex and Gender Information Value Date Recorded Sex Assigned at Female 07/25/2022 1:57 PM CDT Legal Sex Female 6:13 AM ELECTRIC OPERATOR Gender Identity Female 07/25/2022 1:57 PM CDT Sexual Orientation Straight 07/25/2022 1: 57 PM CDT Last Filed Vital Signs Vital Sign Reading Time Taken Comments Blood Pressure 127/75 10/19/2019 11:38 AM CDT Pulse 74 10/19/2019 11:38 AM CDT Temperature 36.2 C (97.1 F) 10/19/2019 11:38 AM CDT Respiratory Rate 18 10/19/2019 11:38 AM CDT Oxygen Saturation 95% 10/19/2019 7:42 AM CDT Inhaled Oxygen Concentration - - Weight 63.5 kg (140 lb) 10/17/2019 5:57 AM CDT Height 160 cm (5' 3) 10/17/2019 5:57 AM CDT Body Mass Index 24.8 10/17/2019 5:57 AM CDT Plan of Treatment Health Maintenance Due Date Last Done Comments COLOGUARD (AGES 45-75) - COL ON CA SCREENING 1967 COLON MONITORING 1967 COLONOSCOPY - COLON CA SCREENING 1967 CT COLONOGRAPHY - COLON CA SCREENING 1967 Colorectal Cancer Screening 1967 FIT - COLON CA SCREENING 1967 FLEX SIG - COLON CA SCREENING 1967 LIPID TESTING 1967 HIV SCREENING 09/04/1982 HEPATITIS C SCREENING 08/31/1985 DTAP/TDAP/TD VACCINES (1 - Tdap) 09/04/1986 HEPATITIS B VACCINE (1 of 3 - 19+ 3-dose series) 09/04/1986 PAP SMEAR 09/04/1988 Cervical Cancer Screening 09/04/1997 PAP with HPV 09/04/1997 PNEUMOCOCCAL VACCINE 50+ (1 of 1 - PCV) 09/04/2017 ZOSTER VACCINE (1 of 2) 09/04/2017 MAMMOGRAM 09/29/2021 09/30/2019 DEPRESSION SCREENING 03/18/2024 COVID-19 VACCINE (1 - 2024-2 6 season) 2024 INFLUENZA VACCINE (#1) 2024 8, 01/11/2015, 01/06/2015 HIB VACCINE Aged Out No longer eligi ble based on patient's age to complete this topic HPV VACCINE Aged Out No longer eligi ble based on patient's age to complete this topic MENINGOCOCCAL (Group B) VACCINE SHARED DECISION-MAKING Aged Out No longer eligible based on patient's age to complete this topic MENINGOCOCCAL GROUPS A/C/Y/W VACCINE Aged Out No longer eligible b ased on patient's age to complete this topic Insurance MEDICAID [facility] Advance Directives * Full Code (Latest Code Status on File) Date Activated Date Inactivated Comments 10/17/2019 5:31 AM 10/19/2019 4:18 PM Care Teams Supervisor Inspection Relationship Specialty Start Date End Date Darci King MD [address] [place] [id number] PCP - General 10/20/19
--- OUTSIDE RECORDS SUMMARY | 2025-02-05 15:48 | XMS_ITS | Clinical Summary ---
Author Organization [facility] Medical Office Building [address] Address [address] [place] [address] Care Team Providers Care Battery Builder Name Role Phone Hugh Delgado MD Primary Care Provi rishi Allergies No known active allergies Medications calcium carbonate-elizabeth min D3 (CALCIUM 500 + D) 500 mg(1,250mg) -400 unit chewable tablet 0 0 06/16/19 16 Active omeprazole (PriLOSEC) 20 mg capsule 2 capsules (40 mg total) daily 05/05/19 19 Active magnesium M-tkanlu-uzzxx namide 42 mg (500 mg)- 250 mg tablet extended release Take 250 mg by mouth daily Active acetaminophen (TYLENOL) 325 mg tablet Take 1 tablet (325 mg total) by mouth every 4 (four) hours as needed 05/26/19 16 Active cyanocobalamin (Vitamin B-12) 1,000 mcg tabletIndicati ons:Prevention of Vitamin B12 Deficiency Take 1 tablet (1,000 mcg total) by mouth daily Active blood-glucose meter,continuo us (Dexcom G7 Shelter Director) misc 1 Device continuously To continuously monitor blood sugar e10.65 1 each 1 07/01/19 25 Active gabapentin (NEURONTIN) 300 mg capsule Take 1 capsule (300 mg total) by mouth 3 (three) times a day E10.65 270 capsule 4 07/01/19 25 Active levothyroxine (SYNTHROID) 75 mcg tablet Take 1 tablet (75 mcg total) by mouth daily before breakfast 90 tablet 4 07/01/19 25 Active atorvastatin (LIPITOR) 40 mg tablet Take 1 tablet by mouth once daily 90 tablet 3 07/17/19 25 Active venlafaxine 150 mg tablet extended release 24hr 24 hr tablet Take 2 tablets (300 mg total) by mouth daily with breakfast 180 tablet 1 08/12/19 25 Active metoprolol XL (TOPROL-XL) 50 mg extended release tablet Take 1 tablet (50 mg total) by mouth daily 90 tablet 1 08/12/19 25 025 Active carBAMazepine XR (TEGretol XR) 200 mg 12 hr tablet Take 1 tablet (200 mg total) by mouth 2 (two) times a day 180 tablet 1 08/12/19 025 Active mv,Ca,min-FA-h erbal no.157 400 mcg tablet Take by mouth A ctive montelukast (SINGULAIR) 10 mg tablet Take 1 tablet (10 mg total) by mouth nightly 90 tablet 11/05/19 25 Active pen needle, diabetic (BD Ultra-Fine Short Pen Needle) 31 gauge x 5/16 needle Inject 1 Device under the skin 4 (four) times a day before meals and nightly E10.65 400 each 3 11/26/19 25 Active insulin degludec (TRESIBA) 100 unit/mL (3 mL) pen for injectionIndic ations:type 1 diabetes mellitus Inject 0.19 mL (19 Units total) under the skin daily (Note dose adjustment since switching to tresiba). E10.65 30 mL 4 11/26/19 25 Active blood-glucose sensor (Dexcom G7 Sensor) device Inject 1 Device under the skin continuously . Change every 10 days. E10.65 3 each 3 11/26/19 25 Active hydrocortisone (ANUSOL-HC) 25 mg suppository Insert 1 suppository (25 mg total) into the rectum 2 (two) times a day 28 suppository 12/05/19 25 Active blood-glucose meter kit Use daily or as directed for monitoring of diabetes 1 kit 12/05/19 25 Active blood glucose diagnostic (glucose blood) strip Use to check blood sugar four times 400 each 3 12/05/19 25 Active hydrocortisone (ANUSOL-HC) 2.5 % rectal cream For hemorrhoid management, squeeze small amount into rectum using internal applicator and also apply small amount externally to rectum up to twice daily as needed. 28 g 5 01/13/20 25 Active insulin lispro (HumaLOG, ADMELOG) 100 unit/mL vial for injection Inject 10 Units under the skin 3 (three) times a day before meals . Correction if need +2 units. Total daily 36 units. E10.65 15 mL 3 01/29/[address] (VOLTAREN) 75 mg EC tablet Take 1 tablet (75 mg total) by mouth 2 (two) times a day as needed for pain 60 tablet 2 02/02/20 25 026 Active cyclobenzaprin e (FLEXERIL) 10 mg tablet Take 1 tablet (10 mg total) by mouth 3 (three) times a day as needed 03/04/20 23 025 Discontinu ed(Therapy completed) insulin lispro (HumaLOG, ADMELOG) 100 unit/mL vial for injection Inject 10 Units under the skin 3 (three) times a day before meals . Correction if need +2 units. Total daily 36 units. E10.65 15 mL 3 07/01/19 25 025 Discontinu ed(Reorder ) predniSONE (DELTASONE) 20 mg tabletIndicati ons:Left sided sciatica Take 2 tabs x2 days, then 1 tab x3 days. 7 tablet 07/18/19 25 025 Discontinu ed(Therapy completed) venlafaxine 75 mg tablet extended release 24hr 24 hr tablet Take 1 tablet (75 mg total) by mouth daily 90 tablet 1 07/29/[address] (VOLTAREN) 75 mg EC tablet Take 1 tablet (75 mg total) by mouth 2 (two) times a day 60 tablet 2 10/27/19 25 025 Discontinu ed(Reorder ) Active Problems Problem Noted Date Diagnosed Date Screening for colon cancer 10/22/2024 Dexcom continuous glucose monitoring device 09/16 Assessment & Plan (10/06/2024 2:32 PM CDT): Continuous glucose monitor (cgm) applied from 09/23/2024 to 10/06/2024 This device was placed for monitor and treatment of blood sugar. Interpretation of data- average glucose 248. 20% time in range. 1% hypoglycemia. 79% hyperglycemia Hypertension associated with type 1 diabetes lizabeth litus 07/23/2024 Assessment & Plan (07/23/2024 2:32 PM CDT): Palpitations 07/23/2024 Assessment & Plan (07/23/2024 2:32 PM CDT): Chronic neck pain 07/23/2024 Assessment & Plan (07/23/2024 2:32 PM CDT): Orders: Ambulatory referral to Neurosurgery; Future Cervical radiculopathy 07/23/2024 Assessment & Plan (07/23/2024 2:32 PM CDT): Orders: Ambulatory referral to Neurosurgery; Future Acquired hypothyroidism 06/30/2024 Assessment & Plan (07/23/2024 3:13 PM CDT): Hypothyroidism is well-controlled on levothyroxine 75 mcg per day as evidenced by the recent TSH. Continue to follow up with endocrinology. Encounter for screening colonoscopy 08/08/2023 Type 1 diabetes mellitus with hyperglycemia 01/16 Assessment & Plan (07/23/2024 2:32 PM CDT): Assessment & Plan (03/05/2023 11:37 AM CONTAINER SHOP WELDER): This is a chronic condition which is inadequately controlled, not at goal of less than 7%. Personally reviewed most recent A1c - Latest Reference Range & Units 12/18/22 00:00 SCRIBED Hemoglobin A1c 4.8 - 5.6 % 10.1 ! (E) !: Data is abnormal (E): External lab result Personally reviewed POC blood sugar- not at goal 80-180 Lab Results Component Value Date POCGLU 324 03/05/2023 Medication- increase Lantus 19 units daily, and humalog 10 units 3 times a day prior to meals with 2 units correction if needed. Monitor blood sugar continuously with dexcom 7 sensor. Encouraged annual eye exam. Monofilament foot exam completed. protective senses intact Treated with Gabapentin Personally reviewed CMP eGFR- 109 Kidney function- normal Urine microalbumin/creatinine ratio - at goal <30 not treated with RACHEL/ARB, treated with metoprolol B/P today- at goal of <140/90. continue metoprolol Personally reviewed lipid panel. Not at Goal of less than 70. Continue atorvastatin Assessment & Plan (01/25/2023 1:40 PM CONTAINER SHOP WELDER): This is a chronic condition which is out of control , not at goal of less than 7%. Personally reviewed most recent A1c - Latest Reference Range & Units 12/18/22 00:00 SCRIBED Hemoglobin A1c 4.8 - 5.6 % 10.1 ! (E) !: Data is abnormal (E): External lab result Personally reviewed POC blood sugar- not at goal 80-180 Lab Results Component Value Date POCGLU 167 01/25/2023 Medication- Continue Lantus 18 units daily, and humalog 10 units 3 times a day prior to meals with 2 units correction if needed. Declined visit to paraeducator or dietitian. Monitor blood sugar continuously with Dexcom 7 sensor order Encouraged annual eye exam. last dilated eye exam was [facility] in [facility] - will try to obtain Monofilament foot exam completed. protective senses intact Personally reviewed CMP eGFR- 106 Kidney function- normal Urine microalbumin/creatinine ratio - need - goal <30 not treated with RACHEL/ARB B/P today- not at goal of <140/90. Personally reviewed lipid panel. Not at Goal of less than 70. 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 Continue present management. Assessment & Plan (03/05/2023 11:37 AM CONTAINER SHOP WELDER): This is a chronic condition which is not at goal of LDL less than 70 Continue atorvastatin Encouraged to eat healthy, include fresh fruits and vegetables daily and avoid eating fried foods more than once per week. Encouraged to take medications as prescribed. Assessment & Plan (01/25/2023 1:40 PM CONTAINER SHOP WELDER): This is a chronic condition which is not at goal of LDL less than 70 Continue atorvastatin Encouraged to eat healthy, include fresh fruits and vegetables daily and avoid eating fried foods more than once per week. Encouraged to take medications as prescribed. Sciatica of right side 05/01/2019 Family history of colonic polyps 11/07/2017 Overview (11/07/2017): Added automatically from request for surgery [id number] Complex partial seizures with consciousness impa ired 08/03/2015 Overview (06/22/2016): Complex partial seizures with consciousness impaired Assessment & Plan (07/23/2024 2:32 PM CDT): Hypersomnia 08/03/2015 Overview (06/22/2016): Hypersomnia Narcolepsy without cataplexy(347.00) 06/16/2015 Overview (06/21/2016): Narcolepsy without cataplexy Encounters Date Type Department Care Team Description 02/01/2025 Orders Only [facility] Primary Care at [address] [address] Hugh Delgado MD 01/12/2025 Orders Only [facility] Gastroenterology at [address] [place] [address] Ja Mcgraw DO 01/12/2025 Telephone [facility] Gastroenterology at [address] [place] [address] Luis E Cortes MA 01/06/2025 Telephone [facility] [address] [place] [address] [address] [place] [address] Alexsander Ralph MD 01/05/2025 Telephone [facility] [address] [place] [address] [address] [place] [address] Aggie Thompson MA 12/08/2024 1:36 PM CDT - 12/08/2024 11:59 PM CDT Hospital Encounter [facility] [address] [place] [address] Discharge Disposition: Discharge to home or self care 12/08/2024 1:00 PM CDT Office Visit [facility] 4th Floor [address] [place] [address] Neck pain (Primary Dx) 12/07/2024 Telephone [facility] Gastroenterology at [address] [place] [address] Nu Meraz MA 12/04/2024 Telephone [facility] Diabetes Endocrine Care at [address] [place] [address] Cathy Bojorquez NP 12/04/2024 Telephone [facility] Gastroenterology at [address] [place] [address] Daria Johnson MA 12/04/2024 Telephone [facility] Gastroenterology at [address] [place] [address] Luis E Cortes MA 12/04/2024 Orders Only [facility] Gastroenterology at [address] [place] [address] Dipika Graham MD 12/03/2024 7:44 AM CDT Anesthesia Event [address] [address] Hugh Marr MD 12/03/2024 7:25 AM CDT - 12/03/2024 7:55 AM CDT Surgery [address] [address] Dipika Graham MD COLONOSCOPY 12/03/2024 7:07 AM CDT - 12/03/2024 8:52 AM CDT Hospital Encounter [address] [address] Dipika Graham MD Discharge Disposition: Discharge to home or self care 12/02/2024 8:00 AM CDT - 12/02/2024 8:30 AM CDT Surgery [address] [address] Dipika Graham MD COLONOSCOPY 12/02/2024 7:47 AM CDT Anesthesia Event [address] [address] Hugh Marr MD Standefer, Zachary Daniel SKEIN TIER 12/02/2024 7:09 AM CDT - 12/02/2024 9:00 AM CDT Hospital Encounter [address] [address] Dipika Graham MD Discharge Disposition: Discharge to home or self care 12/02/2024 Telephone [facility] [address] [place] [address] Health 4th Floor [address] [place] [address] Talia Mcgovern RN 12/02/2024 Telephone [facility] Gastroenterology at [address] [place] [address] Kary Sandoval LPN 11/27/2024 Telephone [facility] Gastroenterology at [address] [place] [address] Luis E Cortes MA from Last 3 Months Immunizations Immunization Administration Dates Next Due Flucelvax Influenza Quad 01/14/2017 Hep B Vaccine 04/24/2022,10/17/2021 Influenza, Quadrivalent, Spl it, Intramuscular 02/21/2019 Influenza, Quadrivalent, Spl it, Preservative Free, Intramuscular 01/02/2022,03/08/2021,02/21/2019,01/28,01/11/2015 Influenza, Split 01/01/2014 Influenza, Trivalent, IM (MDV) 01/06/2015,2012 Influenza, Trivalent, Preser vative Free, Intramuscular 02/21/2016,01/10/2015 Moderna Sars-cov-2 Bivalent Vaccine 50 Mcg/0.5 mL (12+ YRS)-Blue/Sánchez 01/09/2022 Pneumococcal, Unspecified 08/11/2021 Tdap 08/11/2021 ZOSTER Recombinant 08/24/2022,05/21/2022 Surgical History Surgery Date Site/Laterality Comments CARPAL TUNNEL RELEASE Carpal tunnel release Medical History Medical History Date Comments Diabetes mellitus Diabetes Hx Other Medical ; Comm ents: KNA 06/16/2015 - Seizure disorder (HCC) Seizure d isorder Smoking Family History Medical History Relation Name Comments Hypertension Father Hypertension; Pancreatic cancer Father Cancer, pa ncreas; Breast cancer Maternal Grandmother Hypertension Mother Hypertension; Melanoma Mother Melanoma; Parkinsonism Mother Parkinson's dis ease; Breast cancer Mother's Sister Relation Name Status Comments Father Maternal Grandmother Mother Mother's Sister Social History Tobacco Use Types Packs/Day Years Used Date Smoking Tobacco: Some Days Cigarettes Tobacco Cessation:Ready to Q uit: Not Asked; Counseling Given: Yes Alcohol Use Standard Drinks/Week Comments Yes 0 (1 standard drink = 0.6 oz pur e alcohol) PHQ-2 Answer Date Recorded PHQ-2 Total Score (If total score is 3 or more points, staff should administer the PHQ-9) 0 07/23/2024 Hunger Vital Sign Answer Date Recorded Within the past 12 months, y ou worried that your food would run out before you got the money to buy more. Never true 12/09/19 25 Within the past 12 months, t he food you bought just didn't last and you didn't have money to get more. Never true 12/08/2024 Personal Safety Answer Date Recorded Have you ever been in or are you currently in a harmful physical or emotional relationship or is someone making you feel afraid or unsafe? Denies 12/03/2024 Comments No Sex and Gender Information Value Date Recorded Sex Assigned at Not on file Legal Sex Female 11:01 AM CONTAINER SHOP WELDER Gender Identity Female 01/29/2023 8:49 AM CONTAINER SHOP WELDER Sexual Orientation Straight 01/29/2023 8: 49 AM CONTAINER SHOP WELDER Obstetrics History Para Term AB IAB SAB Ectopic Multiple Livin g Live Births 5 2 2 Date Outcome GA Total Labor Labor/2nd/3rd Weight Sex Type Anes PTL Nicolette A1 A5 Name Clin Term Term Last Filed Vital Signs Vital Sign Reading Time Taken Comments Blood Pressure 147/77 12/08/2024 12:49 PM CDT Pulse 72 12/08/2024 12:49 PM CDT Temperature 36.7 C (98.1 F) 12/08/2024 12:49 PM CDT Respiratory Rate 18 12/08/2024 12:49 PM CDT Oxygen Saturation 100% 12/03/2024 8:40 AM CDT Inhaled Oxygen Concentration - - Weight 55.5 kg (122 lb 6.4 oz) 12/08/2024 12:49 PM CDT Height 160 cm (5' 3) 12/08/2024 12:49 PM CDT Body Mass Index 21.68 12/08/2024 12:49 PM CDT Plan of Treatment Health Maintenance Due Date Last Done Comments Cervical Cancer Screening 1965 Hepatitis C Screening 1965 Regular Well Visit/Exam 18-64 09/04/1985 Pneumococcal vaccine <65 (1 of 2 - PCV) 09/04/1986 08/11/2021 Covid-19 Vaccine (2 - 2024-2 6 season) 2024 01/09/2022 Influenza Vaccine (#1) 2024 , 03/08/2021, 02/21/2019, Additional history exists Hemoglobin A1C 04/08/2025 10/06/2024, 06/16, 12/18/2022, Additional history exists Albumin Creatinine Ratio, Urine 06/30/2025 , 01/25/2023 Lipid Panel 06/30/2025 06/30/2024, 12/18/2022 TSH Level 06/30/2025 06/30/2024, 01/16, 06/08/2022, Additional history exists eGFR 06/30/2025 06/30/2024, 05/2022, 12/18/2022, Additional history exists Depression Screening 07/23/2025 07/23/2024 Breast Cancer Screening-Mammogram 07/28/2025 07/28/2024, 01/02/2022, 01/02/2022, Additional history exists Dilated Eye Exam 10/06/2025 10/06/2024 Foot Exam 10/06/2025 10/06/2024, 04/1 07/2024, 03/05/2023, Additional history exists Colon Cancer Screening-Colonoscopy 12/03/2029 12/03/2024, 12/02/2024, 03/14/2010 DTaP/Tdap/Td Vaccine (2 - Td or Tdap) 08/12/2031 08/11/2021 Hepatitis B Screening Completed 04/24/2022, 022 Zoster Vaccine Completed 08/24/2022, 05/21/2022 Colon Cancer Screening-CT Colonography Discontinued 12/03/2024, 12/02/2024, 03/14/2010 Colon Cancer Screening-DNA Stool Discontinued 12/03/2024, 12/02/2024, 03/14/2010 Colon Cancer Screening-FIT Discontinued 12/03, 12/02/2024, 03/14/2010 Colon Cancer Screening-Sigmoidoscopy Discontinued 12/03/2024, 12/02/2024, 03/14/2010 Procedures Procedure Name Priority Date/Time Associated Diagnosis Comments NEURO MR OUTSIDE REFERENCE Routine 12/08/2024 1:36 PM CDT COLONOSCOPY 12/03/2024 7:37 AM CDT Family history of colonic polyps Screening for colon cancer POCT GLUCOSE DEVICE Routine 12/03/2024 7:33 AM CDT COLONOSCOPY 12/03/2024 7:15 AM CDT COLONOSCOPY 12/02/2024 7:33 AM CDT Screening for colon cancer Family history of colonic polyps POCT GLUCOSE DEVICE Routine 12/02/2024 7:31 AM CDT COLONOSCOPY 12/02/2024 7:14 AM CDT POCT HEMOGLOBIN A1C Routine 10/06/2024 2:31 PM CDT Type 1 diabetes mellitus with hyperglycemia (HCC) RETINAVUE SCANNER - OU - BOTH EYES Routine 10/06/2024 Type 1 diabetes mellitus with hyperglycemia (HCC) SCREENING MAMMOGRAM BILATERAL W DALJIT Schedule Routine, Read Routine (OP Routine) 07/28/2024 2:19 PM CDT Screening mammogram for breast cancer EGFR Routine 06/30/2024 2:38 PM CDT Type 1 diabetes mellitus with hyperglycemia (HCC) LIPID PANEL Routine 06/30/2024 2:38 PM CDT Type 1 diabetes mellitus with hyperglycemia (HCC) ALBUMIN CREATININE RATIO, URINE Routine 06/30/2024 2:38 PM CDT Type 1 diabetes mellitus with hyperglycemia (HCC) THYROID FUNCTION CASCADE Routine 06/30/2024 2:38 PM CDT Type 1 diabetes mellitus with hyperglycemia (HCC) from Last 3 Months or Most Recently Relevant to Health Maintenance Results * Neuro MR Outside Reference (12/08/2024 1:36 PM CDT) Impressions RAD[facility]PACS[facility] - 12/08/2024 1:36 PM CDT These images are for Reference purposes only and have not been reviewed by [facility]. There will be no report generated by a [facility] Radiologist. Narrative [facility] - 12/08/2024 1:36 PM CDT EXAMINATION: Images For Reference Purposes Only us Marlon Omer MD IMG MRI PROCEDURES F inal Result Performing Organization Address City/[facility]/ZIP Co de Phone Number [email or web address]_[email or web address] * POCT glucose (12/03/2024 7:33 AM CDT) Glucose, POC 158 70 - 199 mg/dL Blood 12/03/2024 7:33 AM CDT 12/03/2024 7:33 AM CDT Dipika Graham MD LAB POCT ORDERABLES - DEVICE Fin al Result YESSENIA [address] Department [place] [address] * Colonoscopy (12/03/2024 7:15 AM CDT) Anatomical Region Laterality Modality Other Narrative Procedure Note Dipika Graham MD - 12/03/2024 7:15 AM CDT [facility] Patient Name: Lennie Meraz Procedure Date: 12/03/2024 7:15 AM Date of : 1965 Admit Type: Outpatient Age: 59 Gender: Female Attending MD: Dipika Graham M.D., Room: [facility] ENDOSCOPY ROOM 2 Note Status: Finalized Patient Profile: This is a 59 year old female hx of HTN, HLD,tobacco use, DM, chronic pain here for colonoscopy forcolon cancer screening. Patient has chronic history of alternating constipation and diarrhea. Colonoscopy yesterday showed poor prep with tortuous colon.Last colonoscopy 2018 showed normal TI and colon bx. Extensive family hx of both parents with polyps and mother with bowel obstruction. Procedure: Colonoscopy Indications: Colon cancer screening in patient at increasedrisk: Family history of colon polyps in [id number] relatives, Last colonoscopy 5 years ago Referring MD: Hugh Delgado M.D. Providers: Dipika Graham M.D. Impression: - Perianal skin tags found on perianal exam. - Colonic spasm. - External and internal hemorrhoids. - No specimens collected. Recommendation: - Patient has a contact number available for emergencies. The signs and symptoms of potential delayed complications were discussed with thepatient. Return to normal activities tomorrow. Written discharge instructions were provided to thepatient. - Discharge patient to home (with escort). - High fiber diet. - Use original regular Metamucil one tablespoon PO daily. - Repeat colonoscopy in 5 years with 2 day prep for screening purposes. - Return to referring provider as previouslyscheduled. Medicines: Monitored Anesthesia Care Complications: No immediate complications. Estimated Blood Loss: Estimated blood loss: none. Procedure: Pre-Anesthesia Assessment: - Prior to the procedure, a History and Physicalwas performed, and patient medications and allergieswere reviewed. The patient is competent. The risks and benefits of the procedure and the sedation optionsand risks were discussed with the patient. Allquestions were answered and informed consent was obtained. Patient identification and proposed procedure were verified by the physician, the market development manager and the final operations technician in the endoscopy suite. Mental Status Examination: normal. Prophylactic Antibiotics: The patient does not require prophylactic antibiotics. Prior Anticoagulants: The patient has taken no anticoagulant or antiplatelet agents. Afterreviewing the risks and benefits, the patient was deemed in satisfactory condition to undergo the procedure.The anesthesia plan was to use monitored anesthesiacare (MAC). Immediately prior to administration of medications, the patient was re-assessed foradequacy to receive sedatives. The heart rate, respiratory rate, oxygen saturations, blood pressure, adequacyof pulmonary ventilation, and response to care were monitored throughout the procedure. The physical status of the patient was re-assessed after the procedure. The benefits, risks and alternatives of theprocedure and sedation were discussed and informed consentwas obtained. All questions were answered. Please referto the signed informed consent document in the medical record. The bowel preparation used was Miralax via extended prep with split dose instruction. Thebowel preparation used was bisacodyl tablets via extended prep with split dose instruction. The scope waspassed under direct vision. The Pediatric Colonoscope [id number]-[id number] was introduced through the anus and advanced to the the cecum, identified by appendiceal orifice and ileocecal valve. The colonoscopy was performed without difficulty. The patient tolerated the procedure well. The qualityof the bowel preparation was adequate. Bowel prep was administered using a split dose. Findings: Skin tags were found on perianal exam. There was spasm in the sigmoid colon and in the descending colon. External and internal hemorrhoids were found during retroflexion. Dipika Graham M.D. 12/03/2024 8:16:34 AM Number of Addenda: 0 Note Initiated On: 12/03/2024 7:15 AM Procedure Code(s): --- Professional --- G0105, Colorectal cancer screening; colonoscopy on individual at high risk --- Technical --- G0105, Colorectal cancer screening; colonoscopy on individual at high risk Diagnosis Code(s): --- Professional --- Z83.719, Family history of colon polyps, unspecified K58.9, Irritable bowel syndrome, unspecified K64.4, Residual hemorrhoidal skin tags K64.8, Other hemorrhoids --- Technical --- Z83.719, Family history of colon polyps, unspecified K58.9, Irritable bowel syndrome, unspecified K64.4, Residual hemorrhoidal skin tags K64.8, Other hemorrhoids CPT copyright 2022 [place] Medical Association. All rights reserved. The codes documented in this report are preliminary and upon jewelry casting model maker apprentice reviewmay be revised to meet current compliance requirements. Recognized by the [place] [employer] for promoting quality in endoscopy Dipika Graham MD ENDOSCOPY PROCEDURES Final Resul t * POCT glucose (12/02/2024 7:31 AM CDT) Glucose, POC 143 70 - 199 mg/dL Blood 12/02/2024 7:31 AM CDT 12/02/2024 7:31 AM CDT Dipika Graham MD LAB POCT ORDERABLES - DEVICE Fin al Result [facility] [place] 1 [facility] [place] [address] * Colonoscopy (12/02/2024 7:14 AM CDT) Anatomical Region Laterality Modality Other Narrative Procedure Note Dipika Graham MD - 12/02/2024 7:14 AM CDT [facility] Patient Name: Lennie Meraz Procedure Date: 12/02/2024 7:14 AM Date of : 1965 Admit Type: Outpatient Age: 59 Gender: Female Attending MD: Dipika Graham M.D., Room: [facility] ENDOSCOPY ROOM 2 Note Status: Finalized Patient Profile: This is a 59 year old female hx of HTN, HLD,tobacco use, DM, chronic pain here for colonoscopy forcolon cancer screening. Patient has chronic history of alternating constipation and diarrhea. Last colonoscopy 2018 showed normal TI and colon bx. Extensive family hx of both parents with polyps and mother with bowel obstruction. Procedure: Colonoscopy Indications: Colon cancer screening in patient at increasedrisk: Family history of colon polyps in [id number]-[place] relatives, Last colonoscopy 5 years ago Referring MD: Hugh Delgado M.D. Providers: Dipika Graham M.D. Impression: - Preparation of the colon was inadequate. - Perianal skin tags found on perianal exam. - Stool in the entire examined colon. - External and internal hemorrhoids. - Tortuous colon. - No specimens collected. Recommendation: - Patient has a contact number available for emergencies. The signs and symptoms of potential delayed complications were discussed with thepatient. Return to normal activities tomorrow. Written discharge instructions were provided to thepatient. - Discharge patient to home (with escort). - Resume previous diet. - Continue present medications. - Repeat colonoscopy either tomorrow if patient agreeable after another 2L of Miralax prep today or within 3 months because the bowel preparation waspoor. - Return to referring provider as previouslyscheduled. Medicines: Monitored Anesthesia Care Complications: No immediate complications. Estimated Blood Loss: Estimated blood loss: none. Procedure: Pre-Anesthesia Assessment: - Prior to the procedure, a History and Physicalwas performed, and patient medications and allergieswere reviewed. The patient is competent. The risks and benefits of the procedure and the sedation optionsand risks were discussed with the patient. Allquestions were answered and informed consent was obtained. Patient identification and proposed procedure were verified by the physician, the market development manager and the final operations technician in the endoscopy suite. Mental Status Examination: normal. Prophylactic Antibiotics: The patient does not require prophylactic antibiotics. Prior Anticoagulants: The patient has taken no anticoagulant or antiplatelet agents. Afterreviewing the risks and benefits, the patient was deemed in satisfactory condition to undergo the procedure.The anesthesia plan was to use monitored anesthesiacare (MAC). Immediately prior to administration of medications, the patient was re-assessed foradequacy to receive sedatives. The heart rate, respiratory rate, oxygen saturations, blood pressure, adequacyof pulmonary ventilation, and response to care were monitored throughout the procedure. The physical status of the patient was re-assessed after the procedure. The benefits, risks and alternatives of theprocedure and sedation were discussed and informed consentwas obtained. All questions were answered. Please referto the signed informed consent document in the medical record. The bowel preparation used was Miralax via split dose instruction. The bowel preparation usedwas bisacodyl tablets via split dose instruction. The scope was passed under direct vision. The Pediatric Colonoscope [id number] was introduced through the anus and advanced to the the cecum, identified by appendiceal orifice and ileocecalvalve. The patient tolerated the procedure well. Thequality of the bowel preparation was inadequate. The colonoscopy was performed with difficulty due to inadequate bowel prep and a tortuous colon.Successful completion of the procedure was aided by usingmanual pressure. Bowel prep was administered using a split dose. Findings: Skin tags were found on perianal exam. A large amount of stool was found in the entire colon, interferingwith visualization. External and internal hemorrhoids were found during retroflexion. The colon (entire examined portion) was tortuous. Advancing the scope required applying abdominal pressure. Dipika Graham M.D. 12/02/2024 8:20:31 AM Number of Addenda: 0 Note Initiated On: 12/02/2024 7:14 AM Procedure Code(s): --- Professional --- G0105, Colorectal cancer screening; colonoscopy on individual at high risk --- Technical --- G0105, Colorectal cancer screening; colonoscopy on individual at high risk Diagnosis Code(s): --- Professional --- Z83.719, Family history of colon polyps, unspecified K64.8, Other hemorrhoids K64.4, Residual hemorrhoidal skin tags Q43.8, Other specified congenital malformations of intestine --- Technical --- Z83.719, Family history of colon polyps, unspecified K64.8, Other hemorrhoids K64.4, Residual hemorrhoidal skin tags Q43.8, Other specified congenital malformations of intestine CPT copyright 2022 [place] [employer]. All rights reserved. The codes documented in this report are preliminary and upon jewelry casting model maker apprentice reviewmay be revised to meet current compliance requirements. Recognized by the [place] [employer] for promoting quality in endoscopy us Dipika Graham MD ENDOSCOPY PROCEDURES Final Resul t * (ABNORMAL) POCT hemoglobin A1c (10/06/2024 2:31 PM CDT) Hemoglobin A1C, POC 9.9(A) 4.0 - 5.6 % Blood 10/06/2024 2:31 PM CDT us Cathy Bojorquez NP POINT OF CARE TEST ORDERABLES F inal Result * RetinaVue Scanner - OU - Both Eyes (10/06/2024) Anatomical Region Laterality Modality Head Fundus Photograp hy 10/06/2024 Cathy Bojorquez NP OPHTH PHOTOGRAPHY Final Result * Screening Mammogram Bilateral W Daljit (07/28/2024 2:19 PM CDT) Anatomical Region Laterality Modality Breast Bilateral Mammography Impressions 08/07/2024 12:02 PM CDT Bilateral No evidence of malignancy in either breast. OVERALL BI-RADS FINAL ASSESSMENT: 1 - Negative RECOMMENDATION: Recommend bilateral annual screening mammography. Narrative 08/07/2024 12:02 PM CDT EXAMINATION: Screening Mammogram Bilateral W Daljit: 07/28/2024 COMPARISON: Relevant prior studies available at the time of interpretation were reviewed. TECHNIQUE: Mammography was performed with 2D and digital breast tomosynthesis (DBT) images. CAD was utilized. BREAST PARENCHYMAL COMPOSITION: The breasts are extremely dense, which lowers the sensitivity of mammography. FINDINGS: Bilateral There is no suspicious mass, calcification, or architectural distortion in either breast. Lorena Brown NP IMG MAMMO PROCEDURES Final Result * eGFR (06/30/2024 2:38 PM CDT) eGFR >90 >=60 mL/min/1. 73 m2 Comment: Interpretive Data Reference Interval Normal >/= 90 mL/min/1.73m2 Mildly decreased* 60 - 89 mL/min/1.73m2 Mildly to moderately decreased 45 - 59 mL/min/1.73m2 Moderately to severely decreased 30 - 44 mL/min/1.73m2 Severely decreased 15 - 29 mL/min/1.73m2 Kidney Failure < 15 mL/min/1.73m2 *Relative to young adult level Estimated glomerular filtration rate is determined by the 2020 CKD-EPI equation recommended by the National Kidney Foundation (A Unifying Approach to GFR Estimation: Recommendations of the NKF-ASK Task Force on Reassessing the Inclusion of Race in Diagnosing Kidney Disease, JASN 2020). The CKD-EPI equation should not be used for patients with unstable renal function and has not been validated in children and those over 70. Current interpretive data was last reviewed 2021. Testing performed by: [facility], [address] [place] [address]., [address] Blood 06/30/2024 2:38 PM CDT 06/30/2024 10:02 PM CDT Cathy Bojorquez NP LAB BLOOD ORDERABLES Final Resu lt Performing Organization Address [facility] Co de Phone Number [place] [phone] [facility] [place] [address] * Thyroid Function [place] (06/30/2024 2:38 PM CDT) TSH 1.24 0.30 - 4.20 mcIUnit/mL Comment:Testing performed by : [address] [address] Blood 06/30/2024 2:38 PM CDT 06/30/2024 9:14 PM CDT Cathy Bojorquez NP LAB BLOOD ORDERABLES Final Resu lt Performing Organization Address [facility] Co de Phone Number [place] [phone] [facility] [place] [address] * Albumin Creatinine Ratio, Urine (06/30/2024 2:38 PM CDT) Albumin Ur <12.0 mg/L Comment: Interpretive Data No reference range established. Current interpretive data was last revised 2018. Testing performed by: [address], [address] Creatinine Ur 12.2 mg/dL YESSENIA JOSH Comment: Interpretive Data No reference range established. Current interpretive data was last revised 2018. Testing performed by: [facility], [address] [place] [address]., [address] Albumin Creatinine Ratio, Ur See Comment 1 - 29 YESSENIA MORENO Comment: Unable to calculate Testing performed by: [facility], [address] [place] [address]., [address] Urine 06/30/2024 2:38 PM CDT 06/30/2024 9:14 PM CDT us Cathy Bojorquez NP LAB URINE ORDERABLES Final Resu lt YESSENIA [address] Department [place] [address] * Lipid panel (06/30/2024 2:38 PM CDT) Cholesterol 170 30 - 199 mg/dL Comment: Interpretive Data Ages < or = 19 years Acceptable: <170 mg/dL Borderline high: 170-199 mg/dL High: >or= 200 mg/dL Ages > or = 20 years Desirable: <200 mg/dL Borderline high: 200-239 mg/dL High: >or= 240 mg/dL Literature References: 1. Expert Panel on Integrated Guidelines for Cardiovascular Health and Risk Reduction in Children and Adolescents. Pediatrics 2011;128:S213 2. NCEP Expert Panel. Circulation 2004;110:227 Current Interpretive Data was last revised on 2017. Testing performed by: [facility], [address] [place] [address]., [address] Triglycerides 99 <=149 mg/dL YESSENIA MORENO Comment: Interpretive Data Ages < or = 9 years Acceptable: <75 mg/dL Borderline high: 75-99 mg/dL High: >or= 100 mg/dL Ages 10 to 20 years Acceptable: <90 mg/dL Borderline high: 90-129 mg/dL High: >or= 130 mg/dL Ages > or = 20 years Desirable: <150 mg/dL Borderline high: 150-199 mg/dL High: 200-499 mg/dL Very high: >or= 499 mg/dL Literature References: 1. Expert Panel on Integrated Guidelines for Cardiovascular Health and Risk Reduction in Children and Adolescents. Pediatrics 2011;128:S213 2. NCEP Expert Panel. Circulation 2004;110:227 Current Interpretive Data was last revised on 2017. Testing performed by: [facility], [address] [place] [address]., [address] HDL 103 >=40 mg/dL [facility] Comment: Interpretive Data Ages < or = 19 years Acceptable: >45 mg/dL Borderline low: 40-45 mg/dL Low: <40 mg/dL Ages > or = 20 years Desirable: >or= 60 mg/dL Low: <40 mg/dL Literature References: 1. Expert Panel on Integrated Guidelines for Cardiovascular Health and Risk Reduction in Children and Adolescents. Pediatrics 2011;128:S213 2. NCEP Expert Panel. Circulation 2004;110:227 Current Interpretive Data was last revised on 2017. Testing performed by: [address] [address] LDL, calculated 50 <=129 mg/dL [facility] Comment: Interpretive Data Ages < or = 19 years Acceptable: <110 mg/dL Borderline high: 110-129 mg/dL High: >or= 130 mg/dL Ages > or = 20 years Optimal: <100 mg/dL Near optimal: 100-129 mg/dL Borderline high: 130-159 mg/dL High: >160 mg/dL Calculated using the Chavo LDL-C estimating equation. This equation was implemented on 2023. Prior to this date LDL-C was estimated using the Friedewald equation. Literature References: 1. Expert Panel on Integrated Guidelines for Cardiovascular Health and Risk Reduction in Children and Adolescents. Pediatrics 2011;128:S213 2. NCEP Expert Panel. Circulation 2004;110:227 3. Chavo Blair et al. CHARLENE Cardiol. 2020 July 16;5(5):540-548. doi: 10.1001/jamacardio.2020.0013 Current Interpretive Data was last revised on 2023. Testing performed by: [address] [address] Non-HDL Cholesterol 67 mg/dL YESSENIA Comment: Interpretive Data Ages < or = 19 years Acceptable: <120 mg/dL Borderline high: 120-144 mg/dL High: >145 mg/dL Ages > or = 20 years When triglycerides are >200 mg/dL, Non-HDL cholesterol is a secondary target of therapy with treatment goals that are 30 mg/dL greater than the LDL cholesterol target. Literature References: 1. Expert Panel on Integrated Guidelines for Cardiovascular Health and Risk Reduction in Children and Adolescents. Pediatrics 2011;128:S213 2. NCEP Expert Panel. Circulation 2004;110:227 Current Interpretive Data was last revised on 2017. Testing performed by: [facility], [address] [place] [address]., [address] Chol/HDL ratio 2 YESSENIA MORENO Comment:Testing performed by : [facility], [address] [place] [address]., [address] Blood 06/30/2024 2:38 PM CDT 06/30/2024 9:14 PM CDT us Cathy Bojorquez NP LAB BLOOD ORDERABLES Final Resu lt [facility]IA [id number] [place] [address] Department [place] [address] from Last 3 Months or Most Recently Relevant to Health Maintenance Insurance [facility] Advance Directives For more information, please contact: [phone] * Full Code (Latest Code Status on File) Date Activated Date Inactivated Comments 12/03/2024 7:14 AM 12/03/2024 1:03 PM * Full Code Date Activated Date Inactivated Comments 12/03/2024 7:14 AM 12/03/2024 7:14 AM * Full Code Date Activated Date Inactivated Comments 12/02/2024 7:14 AM 12/02/2024 1:18 PM * Full Code Date Activated Date Inactivated Comments 12/02/2024 7:14 AM 12/02/2024 7:14 AM Care Teams Battery Builder Relationship Specialty Start Date End Date Hugh Delgado MD [address] [address] PCP - General Family Practice 07/23/24
--- OUTSIDE RECORDS SUMMARY | 2025-02-05 15:48 | XMS_ITS | Patient Health Record ---
Author Organization [facility] Address [address] [place] [address] Care Team Providers Care Labview Programmer Name Role Phone Hunter Wilhelm Primary Care Provider [phone] Lucie Ayala Unavailable [phone] Allergies No Known Allergies Reason For Referral No Information Medications Medication SIG (Take, Route, Frequency, Duration) Notes Start Date End Date Status Metoprolol Succinate ER 50 mg TAKE 1 TABLET BY MOUTH DAILY; Duration: 30 days Active metroNIDAZOLE 500 MG 1 tablet Orally Twi ce daily; Duration: 7 days 02/05/2024 Active TRUEplus Pen Galvin 31G X 6 MM INJECT FOUR TIMES A DAY WITH INSULIN; Duration: 25 days Active Lantus SoloStar 100 UNIT/ML INJECT 20 UNITS SUBCUTANEOUSLY EVERY NIGHT; Duration: 75 days Active Calcium 600 MG 1 tablet with meals Orally Once a day Not-Taking carBAMazepine ER 200 mg TAKE 1 TABLET BY MOUTH TWICE A DAY; Duration: 30 days Active Lidocaine 4 % 1 patch as needed Externally Once a day Not-Taking Meclizine HCl 25 MG 1 tablet as needed Orally Once a day; Duration: 30 Not-Taking Gabapentin 300 mg TAKE 1 CAPSULE BY MOUTH UP TO THREE TIMES A DAY; Duration: 30 days Active Venlafaxine HCl ER 150 mg TAKE 1 CAPSULE BY MOUTH DAILY WITH FOOD; Duration: 30 days overdue for appt Active LORazepam 1 MG as directed Orally Once a day; Duration: 30 days Not-Taking HumaLOG KwikPen 200 UNIT/ML INJECT UP TO 20 UNITS SUBCUTANEOUSLY THREE TIMES A DAY SLIDING SCALE; Duration: 84 days Active Euthyrox 75 MCG TAKE 1 TABLET BY MOUTH ONCE DAILY IN THE MORNING ON AN EMPTY STOMACH; Duration: 30 Not-Taking Admelog SoloStar 100 UNIT/ML INJECT 10 UNITS BEFORE EVERY MEAL Subcutaneous three times daily; Duration: 50 Not-Taking Influenza Vac Split Quad 0.5 ML as directed Intramuscular once Not-Taking Atorvastatin Calcium 40 mg TAKE 1 TABLET BY MOUTH DAILY; Duration: 30 days Active Test strips for glucometer As directed QID 07/29/2020 Not-Taking Influenza Vac Split Quad 0.5 ML as directed Intramuscular once Not-Taking Omeprazole 40 mg TAKE 1 CAPSULE BY MOUTH DAILY 30 MINUTE(S) BEFORE FOOD; Duration: 30 Active OneTouch Ultra - TEST BLOOD SUGAR THREE TIMES A DAY; Duration: 33 Not-Taking Metoprolol Tartrate 25 mg TAKE 1 TABLET BY MOUTH TWICE A DAY WITH FOOD; Duration: 30 Not-Taking UltiCare Mini Pen Galvin 31G X 6 MM INJECT FOUR TIMES A DAY WITH INSULIN; Duration: 25 Not-Taking Fluticasone Propionate 50 MCG/ACT 1 spray in each nostril Nasally Once a day Active Levothyroxine Sodium 75 MCG 1 tablet in the morning on an empty stomach; Duration: 30 days Active Claritin 10 MG 1 capsule Orally Onc e a day Active ProAir HFA 108 (90 Base) MCG/ACT 1-2 puff as needed Inhalation every 4 hrs; Duration: 30 days 08/06/2019 Active Tresiba FlexTouch 100 UNIT/ML as directed Subcutaneous Active Diclofenac Sodium 75 mg TAKE 1 TABLET BY MOUTH TWICE A DAY; Duration: 30 days Active Venlafaxine HCl ER 75 mg TAKE 1 CAPSULE BY MOUTH DAILY; Duration: 30 days Active Immunizations Vaccine Route Administration Date Status Comme nts FLU VAC NO PRSV 4VAL 6 mo+ IM Intramuscular 03/08/2021 Administered Fur Dresser Flyr. Pt tolerated well. Voiced no questions or concerns at present time Social History Tobacco Use: Social History Observation Description Date Details (start date - stop date) Current Smoker NA - NA Sex Assigned At : Social History Observation Description Sex Assigned At Female Dont use, Tobacco Use/Smoking Question Answer Notes Are you a current smoker Alcohol Screen (Audit-C) Question Answer Notes Did you have a drink containing alcohol in the p ast year? Yes Tobacco Control (Standard) Question Answer Notes Tobacco use: Current smoker Section Notes: Problems Problem Type SNOMED Code ICD Code Onset Dates Problem Status W/U Status Risk Notes Problem Tobacco user (736008467) Nicotine dependence, unspecified, uncomplicated (F17.200) Active confirmed Problem Alcohol abuse (28250081) Alcohol abuse (F10.10) Active confirmed Problem Anxiety (20014080) Anxiety (F41.9) Active confi rmed Problem Seizure disorder (299170183) Seizure disorder (G40.909) Active confirmed Problem Hypothyroidism (84608314) Hypothyroidism, unspecified type (E03.9) Active confirmed Problem Gastroesophageal reflux disease without esophagitis (893651890) Gastroesophageal reflux disease without esophagitis (K21.9) Active confirmed Problem Type I diabetes mellitus without complication (369945812) Type 1 diabetes mellitus without complication (E10.9) 020 Active confirmed Problem Tobacco use (814806324) Tobacco use disorder (F17.200) Active confirmed Problem Diabetic foot (739292002) Diabetic 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) 021 Active confirmed Vital Signs Heart Rate 75 /min 02/25/2024 Respiratory Rate 16 /min 02/25/2024 Blood pressure diastolic 68 mm Hg 02/25/2024 Oximetry 99 % 02/25/2024 Height 63 in 02/25/2024 Blood pressure systolic 132 mm Hg 02/25/2024 Weight 130.8 lbs 02/25/2024 BMI 23.17 kg/m2 02/25/2024 Encounters Encounter Location Date Provider Diagnosis [address] [place] [address] 04/27/2024 Hunter Wilhelm [address] [place] [address] 02/25/2024 Hunter Wilhelm Type 1 diabetes mellitus without complication E10.9 ; Hypothyroidism, unspecified type E03.9 ; Seizure disorder G40.909 and Nicotine dependence, unspecified, uncomplicated F17.[address] [place] [address] 02/11/2024 Lucie Ayala [address] [place] [address] 03/09/2024 Hunter Wilhelm [address] [place] [address] 03/13/2024 Hunter Wilhelm [address] [place] [address] 04/01/2024 Hunter Wilhelm [address] [place] [address] 04/21/2024 Hunter Wilhelm [id number] [place] [address] 05/18/2024 Hunter Wilhelm Assessments Encounter Date Diagnosis (ICD Code) Assessment Notes Treatment Notes Treatment Clinical Notes Section Notes 02/25/2024 Hypothyroidism, unspecified type (ICD-10 - E03.9) 02/25/2024 Type 1 diabetes mellitus without complication (ICD-10 - E10.9) 02/25/2024 Seizure disorder (ICD-10 - G40.909) 02/25/2024 Nicotine dependence, unspecified, uncomplicated (ICD-10 - F17.200) Plan Of Treatment No Information Insurance Providers Payer Name Payer Address Payer Phone Subscriber Number Group Number Insured Name Patient Relationship to Insured Coverage Start Date Coverage End Date [facility] Attn Claims Department [address] [place] [address] [id number] Mariya Lennie Self - patient is the insured 3 [employer] [address] [place] [address] [id number] Mariya Lennie Self - patient is the insured 0 0 MEDICAID [address] [place] [address] [id number] Mariya Lennie Self - patient is the insured 3 3 Medical (General) History Medical History History ICD Code diabetic acid reflex depression epilepsy Surgical History Surgery Date(Month/Year) 1993 dnc 1994 sinus surgery 2015 carpal tunnel both hands correction surg javier 2002& 2017 R hand trigger finger release 09/2019 bladder lift 2018 uterine ablation 2011 left wrist surgery 2023 Hospitalization History Reason Date(Month/Year) Infection in incision [facility] 2019
--- OUTSIDE RECORDS SUMMARY | 2025-02-05 15:48 | XMS_ITS | Data Portability ---
Author Organization [place] [facility], Main Office Address [address] [place] [address] Care Team Providers Care [employer] Adviser Name Role Phone KIDDMARIELOSSTEFANIE Primary Care Provider Assessment No assessment recorded. Plan of Treatment Reminders Order Date Submit Date Provider Last Modified By Organization Details Last Modified Time Details Appointments None recorded. Lab None recorded. Referral None recorded. Procedures None recorded. Surgeries None recorded. Imaging None recorded. Medication Orders montelukast 10 mg tablet 2023 024 [id number], [address], [place], [id number], 16:49:09 Patient TargetsNo targets recorded. Patient Instructions Encounter Date Encounter Id Patient Instructions Last Modified By Organization Details Last Modified Time 07/17/2023 [id number] it is highly likely that there will be pathology on the sinus CT [email or web address] Not available 07/17/2023 12:18:13 Reason for Referral None Reported. Results Created Date Observation Date Name Description Value Unit Range Abnormal Flag Note LastModifiedBy Organization Detail LastModifiedTime 07/31/1907/29/2023 CT, sinus es, w/o contr ast No observ ation record ed. [address], [address], 08/07/2023 12:13:56 08/02/19 24 07/29/2023 CT, sinus es, w/o contr ast No observ ation record ed. [address], [address], 08/07/2023 12:13:29 09/26/19 24 09/25/2023 audio gram + tympa nogra m No observ ation record ed. [email or web address] [facility] [address] [place], [address], 09/26/2023 08:52:24 09/27/19 24 09/27/2023 audio gram + tympa nogra m No observ ation record ed. [email or web address] [facility] [address] [place], [address], 10/02/2023 14:08:52 Result Notes None recorded. Problems Name Problem SNOMED Code Status Onset Date Resolution Date Notes Provider Name and Address Organization Details Recorded Time Chronic sinusitis 98600876 Active 2023 Rosalia Orourke RN null, [facility] 4 12:15:49 Chronic sinusitis 81403010 Active 2023 Raymond Bailey MD [address], [place], [address], [facility] 4 12:17:50 Otalgia of left ear 2704806185 Active 2023 ANNA Giles null, [facility] 4 15:25:51 Sensorineur al hearing loss 31703301 Active 2023 Rosalia Orourke RN null, [facility] 4 16:44:52 Dysfunction of right eustachian tube 5959200792023 101 Active 2023 Raymond Bailey MD [address], [address], [place], [address], [facility] 4 16:48:29 Allergic rhinitis 93741967 Active 2023 Raymond Bailey MD [address], [place], [address], [facility] 4 16:48:41 Problem Notes None recorded. Procedures Surgical History Date Name Laterality Status Provider Name and Address Organization Details Recorded Time Tonsillectomy completed ANNA Giles [facility] 07/04/2023 11:09:41 operation on nose [facility] 07/04/2023 11:09:53 Sinus Surgery completed Tatum Kapoor [facility] 07/04/2023 11:12:41 Imaging Results None recorded. Procedure Notes None recorded. Medical Equipment None Reported. Allergies No known drug allergies Medications Name Sig Start Date Stop Date Status Note LastModified by Organization Details LastModified Time cyclobenza kong 10 mg tablet TAKE 1 TABLET BY MOUTH THREE TIMES DAILY FOR UP TO 14 DAYS NEEDED FOR MUSCLE SPASMS 07/16 completed Not Available Not Available Not Available atorvastat in 40 mg tablet Take 1 tablet every day by oral route. active Not Available Not Available No t Available venlafaxin e ER 75 mg capsule,ex tended release 24 hr TAKE 1 CAPSULE BY MOUTH ONCE DAILY WITH 150MG CAPSULE active Not Available Not Available No t Available atorvastat in 20 mg tablet 07/16 completed Not Available Not Available Not Available venlafaxin e 75 mg tablet Take 1 tablet twice a day by oral route. 07/03 completed ER Not Available Not Available Not Available tizanidine 4 mg tablet 07/16 completed Not Available Not Available Not Available metoprolol succinate ER 50 mg tablet,ext ended release 24 hr Take 1 tablet every day by oral route. active Not Available Not Available No t Available hydrocodon e 5 mg-acetami nophen 325 mg tablet TAKE 1 TABLET BY MOUTH EVERY 6 HOURS NEEDED FOR MODERATE TO SEVERE PAIN active Not Available Not Available No t Available Claritin 10 mg tablet Take 1 tablet every day by oral route. active Not Available Not Available No t Available ondansetro n HCl 4 mg tablet TAKE 1 TO 2 TABLETS BY MOUTH EVERY 8 HOURS NEEDED FOR NAUSEA FIRST LINE active Not Available Not Available No t Available prednisone 20 mg tablet TAKE 2 TABLETS BY MOUTH DAILY FOR 3 DAYS THEN TAKE 1 TABLET BY MOUTH DAILY FOR 3 DAYS active Not Available Not Available No t Available venlafaxin e ER 150 mg capsule,ex tended release 24 hr Take 1 capsule every day by oral route. active Not Available Not Available No t Available sulfametho xazole 800 mg-trimeth oprim 160 mg tablet 07/16 completed Not Available Not Available Not Available omeprazole 40 mg capsule,de layed release Take 1 capsule every day by oral route. active Not Available Not Available No t Available tramadol 50 mg tablet TAKE 1 TO 2 TABLETS BY MOUTH EVERY 6 HOURS NEEDED FOR PAIN 07/16 completed Not Available Not Available Not Available levothyrox ine 75 mcg tablet Take 1 tablet every day by oral route. active Not Available Not Available No t Available carbamazep ine 200 mg tablet Take 1 tablet every 12 hours by oral route. 07/16 completed ER Not Available Not Available Not Available dicyclomin e 20 mg tablet active Not Available Not Available Not Available meclizine 25 mg tablet Take 1 tablet 3 times a day by oral route. 07/16 completed Not Available Not Available Not Available carbamazep ine ER 200 mg tablet,ext ended release,12 hr active Not Available Not Available Not Available benzonatat e 100 mg capsule TAKE 1 CAPSULE BY MOUTH THREE TIMES DAILY FOR UP TO 10 DAYS NEEDED FOR COUGH 07/16 completed Not Available Not Available Not Available hydrocodon e 7.5 mg-acetami nophen 325 mg tablet TAKE 1 TABLET BY MOUTH EVERY 6 HOURS NEEDED FOR PAIN active Not Available Not Available No t Available cephalexin 500 mg capsule TAKE 1 CAPSULE BY MOUTH EVERY 12 HOURS active Not Available Not Available No t Available prednisone 50 mg tablet TAKE 1 TABLET BY MOUTH DAILY FOR 5 DAYS 07/16 completed Not Available Not Available Not Available venlafaxin e ER 75 mg capsule,ex tended release Take by oral route. active Not Available Not Available No t Available gabapentin 300 mg capsule Take 1 capsule 3 times a day by oral route. active Not Available Not Available No t Available diclofenac sodium 75 mg tablet,del ayed release Take 1 tablet twice a day by oral route. active Not Available Not Available No t Available montelukas t 10 mg tablet Take 1 tablet every day by oral route. active Not Available Not Available No t Available lorazepam 1 mg tablet Take 1 tablet 3 times a day by oral route. 07/16 completed Not Available Not Available Not Available methylpred nisolone 4 mg tablets in a dose pack FOLLOW PACKAGE DIRECTIO NS active Not Available Not Available No t Available albuterol sulfate HFA 90 mcg/actuat ion aerosol inhaler INHALE 2 PUFFS BY MOUTH EVERY 6 HOURS NEEDED FOR WHEEZING active Not Available Not Available No t Available nitrofuran toin monohydrat e/macrocry stals 100 mg capsule TAKE 1 CAPSULE BY MOUTH TWICE A DAY FOR 5 DAYS 07/16 completed Not Available Not Available Not Available carbamazep ine ER 200 mg capsule,ex tended release [id number] TAKE 1 CAPSULE BY MOUTH TWICE DAILY 07/16 completed Not Available Not Available Not Available Calcium 600 active 600 mg tab Not Available Not Available Not Available lidocaine 1 patch prn 07/16 completed Patch, 4% Not Available Not Available Not Available ProAir HFA 07/16 completed Not Available Not Available Not Available Lantus Solostar U-100 Insulin 100 unit/mL (3 mL) subcutaneo us pen active Not Available Not Available Not Available Lantus Solostar U-100 Insulin 08/21 completed Not Available Not Available Not Available Humalog KwikPen (U-100) Insulin 100 unit/mL subcutaneo us active Not Available Not Available Not Available azelastine 137 mcg-flutic asone 50 mcg/spray nasal spray Topping 1 spray twice a day by intranas al route. active Not Available Not Available No t Available Humalog KwikPen U-200 Insulin 200 unit/mL (3 mL) subcutaneo us Inject by subcutan eous route. active Not Available Not Available No t Available naloxone 4 mg/actuati on nasal spray CALL 911. SPR CONTENTS OF ONE SPRAYER (0.1ML) INTO ONE NOSTRIL. REPEAT IN 2-3 MIN IF SYMPTOMS OF OPIOID EMERGENC Y PERSIST, ALTERNAT E NOSTRILS active Not Available Not Available No t Available TRUEplus Pen Needle 31 gauge x 07/31 active Not Available Not Available Not Available Admelog SoloStar U-100 Insulin active INJ 10 UNITS BEFORE Q MEAL, SUBCUE 3 X DAILY Not Available Not Available Not Available Tresiba U-100 Insulin 100 unit/mL subcutaneo us solution Inject by subcutan eous route. 07/16 completed Not Available Not Available Not Available Dexcom G7 Administrative Officer active Not Available Not Available Not Available Dexcom G7 Sensor device active Not Available Not Available Not Available Vitals Date Recorded Body height Body mass index (BMI) Body weight Body temperature Provider Name and Address Organization Details Last Updated DateTime 07/17/2023 160.02 cm 23.3 kg/m2 52562.47 g 97.7 [degF] Rosalia Orourke RN [facility] 07/17/2023 12:08:30 Date Recorded Body height Body mass index (BMI) Body weight Provider Name and Address Organization Details Last Updated DateTime 08/22/2023 160.02 cm 23.6 kg/m2 06174.79 g Rosalia Orourke RN [facility] 08/22/2023 16:26:33 Social History None recorded. Functional Status Question Answer Note LastModified by Organization D etails LastModified Time What is your level of alcohol consumption? None [email or web address] Information not available 07/04/2023 Mental Status None recorded. Family History Nothing Reported Notes:No ENT Medical History Condition Response DEPRESSION (INCLUDING POST ) Y DIABETES, TYPE Y HEARTBURN / REFLUX Y NEUROPSYCHOLOGICAL Y Gynecological HistoryNo gynecological history recorded. Obstetrics History GPAL:G 0 P 0 0 0 0 Past Encounters Encounter ID Performer Location Encounter Start Date Encounter Closed Date Diagnosis/Indication Diagnosis SNOMED-CT Code Diagnosis ICD10 Code Diagnosis IMO Codes Diagnosis Note [id number] MD KHUSHI [facility] [place] [address] [place] [address] 07/17/2023 11:16:26 07/17/2023 14:07:16 Chronic sinusitis 09037642 J32.9 [id number] Raymond Bailey MD [facility] [place] [address] [place] [address] 08/22/2023 15:51:08 08/23/2023 14:37:38 Dysfunction of right eustachian tube 2738576117 513700 H69.91 Allergic rhinitis 599910 04 J30.9 Health Concerns Section Related Observation LastModified by Organization Detai ls LastModified Time None Recorded Concern Status LastModified by Organization Details LastModified Time None Recorded Advance Directives Directive None Recorded Payers Insurance Date Sequence Insurance Name Policy Number Policy Russell Covered Member ID Russell Member ID Guarantor Name 07/17/2023 1 [employer] [facility] ON OR AFTER 02/16/2020 (MEDICAID REPLACEMENT - HMO) Lennie Mariya [id number] Lennie Meraz 08/20/2023 1 [facility] - DOS ON OR AFTER 20 (MEDICAID REPLACEMENT - HMO) Lennie Mariya [id number] Lennie Mariya Notes Date Note Type Note Provider Name and Address Organization Details Recorded Time 07/17/2023 text/html this patient has a 2 year or so left facial pain left nasal congestion and left ear pain. She had sinus surgery in 2016. She has had a number of antibiotics and steroids. There has been no recent imaging. She denies TMJ pain. Raymond Bailey MD [address], [address], [place], [address], [place] 07/17/2023 12:18:45 08/22/2023 text/html This patient reports a history of left ear pain ear fullness nasal congestion ear cracking snoring and crackling in the right ear. A sinus CT was done and was essentially normal. She does report that her headache has cleared that her cough still exists however but is not as bad. This was following a course of steroids. Raymond Bailey MD [address], [place], [address], [employer] 08/22/2023 16:49:18 OBGyn Episode No OBEpisode recorded.
[2025-02-05 15:50] VITALS: BP 132/70; PULSE 90; RESP 18; TEMP 36.9; O2SAT 100
--- NOTE | 2025-02-05 16:30 | ED_ITS ---
HPI - URI/Sore Throat General Chief Complaint: Upper Respiratory Infection Stated Complaint: sore throat Time Seen by Provider: 02/05/25 16:22 Source: patient and RN notes reviewed Mode of arrival: ambulatory Limitations: no limitations History of Present Illness HPI Narrative: 59-year-old female presents with concern for sore throat, hoarse voice, ear fullness and occasional cough and chest congestion. She is concern for strep because she was exposed to it. Reports symptoms seemed to worsen yesterday. MD elicited complaint: cough and sore throat Related Data Home Medications ?Medication ?Instructions ?Recorded ?Confirmed ?Last Taken ?Type atorvastatin 20 mg tablet mg 09/02/23 Unknown History carbamazepine 200 mg mg PO 09/02/23 Unknown Hist ory tablet,extended release,12 hr gabapentin 300 mg capsule mg 09/02/23 Unknown History insulin glargine 100 unit/mL (3 unit subcut 09/02/23 Unknown History mL) subcutaneous pen (Lantus Solostar U-100 Insulin) insulin lispro 100 unit/mL subcut 09/02/23 Unknown Hi story subcutaneous pen (Humalog KwikPen (U-100) Insulin) levothyroxine 75 mcg tablet mcg 09/02/23 Unknown Hist ory metoprolol succinate 50 mg mg PO 09/02/23 Unknown His tory tablet,extended release 24 hr montelukast 10 mg tablet mg 09/02/23 Unknown History omeprazole 40 mg capsule,delayed mg 09/02/23 Unknown History release venlafaxine 150 mg mg PO 09/02/23 Unknown Hist ory capsule,extended release 24 hr Allergies Allergy/AdvReac Type Severity Reaction Status Date / Time No Known Allergies Allergy Verified 02/05/25 15:47 Review of Systems Review of Systems: CONSTITUTIONAL: Reports malaise. Denies chills, sweats, or fever. EYES: Denies visual changes, redness, or discharge. ENT: Reports rhinorrhea, congestion, otalgia and sore throat. CARDIOVASCULAR: Denies chest pain, palpitations, or edema. RESPIRATORY: Reports cough. Denies dyspnea. GASTROINTESTINAL: Denies abdominal pain, nausea, vomiting, diarrhea SKIN: Denies rash or itching. MUSCULOSKELETAL: Denies myalgia. NEUROLOGIC: Denies headache. All systems reviewed & are unremarkable except as noted in HPI and below PMFSH Comments At time of signature, agree with nursing past medical, surgical, social and family history. There is no relevant family history pertinent to the presenting complaint Exam Narrative: GENERAL: Well-appearing, well-nourished, and in no acute distress. HEAD: Normocephalic EYES: PERRLA, conjunctivae clear ENT: Nares clear, turbinates edematous and erythematous, clear discharge. Mucous membranes moist. TM pearly gutiérrez with dull light reflex bilaterally; no tragal tenderness. Oropharynx not erythematous without lesions. Tonsils not enlarged and without exudate, no drooling, no hoarseness, no trismus, uvula midline. NECK: Supple. No lymphadenopathy CHEST: Clear to auscultation, breath sounds equal. No wheezing, rhonchi, rales, or stridor. No respiratory distress, speaks in full sentences. HEART: Regular rate and rhythm. No murmur heard. SKIN: Warm, dry, no rash. NEURO: Alert and oriented x3. PSYCH: Normal mood and affect Course Course Emergency Course: Patient is aware of diagnosis, understands and agrees to treatment plan. Anticipatory guidance given. Patient agrees to follow-up as directed and is aware of reasons to seek care at the emergency department. Portions of this record may have been created with voice recognition software Level of Care: Express Care Visit Vital Signs Vital signs: Vital Signs Temperature 98.4 F 02/05/25 15:50 Pulse Rate 90 02/05/25 15:50 Respiratory Rate 18 02/05/25 15:50 Blood Pressure 132/70 02/05/25 15:50 Pulse Oximetry 100 02/05/25 15:50 Oxygen Delivery Room Air 02/05/25 15:50 Temperature 98.4 F 02/05/25 15:50 Pulse Rate 90 02/05/25 15:50 Respiratory Rate 18 02/05/25 15:50 Blood Pressure 132/70 02/05/25 15:50 Pulse Oximetry 100 02/05/25 15:50 Oxygen Delivery Room Air 02/05/25 15:50 Reviewed. MDM - URI/Sore Throat MDM Narrative Medical decision making narrative: Differential diagnosis considered: Mccray virus, strep pharyngitis, allergic rhinitis, upper respiratory tract infection, sinusitis, rhinosinusitis, nasopharyngitis. viral pharyngitis, otitis media, otitis externa, pneumonia, bronchitis, viral cough syndrome, viral syndrome, and influenza. Exam findings show no acute concerns or changes; patient is non-toxic appearing and is in no distress. Patient is appropriate for outpatient treatment and follow-up. Lab Data Attestation: I reviewed the patient's lab results. Critical Care Time Critical Care Time Critical Care Time: No Discharge Plan Discharge Clinical Impression: Upper respiratory infection Patient Disposition: Home Condition: Stable Instructions: Upper Respiratory Infection (ED) Additional Instructions: Viral illness may last between 7-21 days; antibiotics do not cure viral illness and are NOT recommended at this time. Recommend antihistamine such as Benadryl at night time and Zyrtec or Kaci during the day Also, recommend symptomatic treatment includes: rest, fluids, and increase humidity of the air at home. Recommend Acetaminophen as directed on the bottle to reduce fever, pain, headache. Avoid smoking/second-hand smoke. Please schedule a follow-up visit with your personal physician for further evaluation and treatment within 3-5days. If your symptoms persist, change or worsen significantly before you can contact your personal physician then please, without delay, go to the emergency department for further evaluation. Patient Language: Maori Prescriptions: New methylprednisolone [Medrol (Estrada)] 4 mg tablets,dose pack See Rx Instructions .ROUTE .COMPLEX Qty: 21 0RF Rx Instructions: orally per package directions No Action atorvastatin 20 mg tablet metoprolol succinate 50 mg tablet extended release 24 hr PO venlafaxine 150 mg capsule,extended release 24hr PO omeprazole 40 mg capsule,delayed release(DR/EC) levothyroxine 75 mcg tablet carbamazepine 200 mg tablet extended release 12 hr PO gabapentin 300 mg capsule montelukast 10 mg tablet insulin lispro [Humalog KwikPen Insulin] 100 unit/mL insulin pen SUBCUT insulin glargine [Lantus Solostar U-100 Insulin] 100 unit/mL (3 mL) insulin pen SUBCUT cephalexin 500 mg capsule 500 mg PO Q12H Qty: 14 0RF prednisone 20 mg tablet See Rx Instructions .ROUTE .COMPLEX Qty: 9 0RF Rx Instructions: Take 40mg x3 days, 20mg x3 days Follow-up/Referrals: PHYSICIAN NOT ON STAFF,NONSTAFF [Primary Care Provider] Time of Disposition: 16:32
[2025-02-08 11:48] LABS: EDSTREPNEGPOS1 Negative (Negative)
== END 2025-02-05 16:37 | disposition home or self-care (01) ==
PROVIDERS: Emergency Provider Nurse Practitioner
DX: J06.9 Acute upper respiratory infection, unspecified (principal)
CPT/HCPCS: 87081; 87880; 99213; G0463